=== PATIENT | female | born 1950 | race African-American/Black ===

== ENCOUNTER 2020-03-23 14:33 | Emergency (ER) | payer OTHER, SELFPAY ==
[2020-03-23 14:42] VITALS: BP 147/66; PULSE 71; RESP 14; TEMP 36.6; O2SAT 100
--- NOTE | 2020-03-23 15:03 | ED.URI ---
HPI - URI/Sore Throat General Chief Complaint: Upper Respiratory Infection Stated Complaint: cough and scratchy throat Time Seen by Provider: 03/23/20 15:03 Source: patient and RN notes reviewed History of Present Illness HPI Narrative: Patient is a 69-year-old female presents the urgent care with complaints of cough for 2 weeks. Patient states that it is typically yellow to clear productive and mostly only in the mornings. Patient reports of a sore throat that started last night. Patient reports it is been scratchy and irritated. Denies of any fever, nausea, vomiting. Denies of any shortness of breath. Denies of any medication [id number] for symptom relief. No other acute complaints. No acute distress noted. Patient read the plan of care. Related Data Home Medications Medication Instructions Recorded Confirmed linaclotide [Linzess] 145 mcg PO DAILY 03/23/20 03/23/20 Allergies Allergy/AdvReac Type Severity Reaction Status Date / Time esomeprazole Allergy Intermediate Rash Verified 03/23/20 14:49 Review of Systems Review of Systems: Narrative: CONSTITUTIONAL: Denies fever, chills, or sweats. EYES: Denies visual changes, redness, or discharge. ENT: Reports of sore throat CARDIOVASCULAR: Denies chest pain, palpitations, or edema. RESPIRATORY: Reports a mild cough without dyspnea GASTROINTESTINAL: Denies abdominal pain, nausea, vomiting, or diarrhea. GENITOURINARY: Denies dysuria or hematuria. SKIN: Denies rash or itching. MUSCULOSKELETAL: Denies back pain, joint pain, or myalgia. NEUROLOGIC: Denies headache, numbness, or weakness. All other systems reviewed are negative, except as documented in HPI. PMFSH Comments At the time of my signature, I reviewed and agree with the nursing past medical, surgical, social, and family history. There is no relevant family history pertinent to the patient complaint. Exam Narrative: Exam Narrative: GENERAL: This is a well-nourished, well-developed patient, in no apparent distress. HEAD: normocephalic, atraumatic. EYES: PERRL. Sclera clear/white. Vision is grossly intact. EARS: External ears normal, auditory canals clear and without drainage, TMs normal without perforation. Hearing grossly intact. NOSE: External nose normal with no obvious nasal discharge, nares without redness, no rhinorrhea. THROAT: Mucous membranes moist, mild erythema to the posterior oropharynx with mild postnasal drainage without exudate or ulceration. No tonsillar edema noted. NECK: Neck supple RESPIRATORY: Clear to auscultation. Breath sounds equal bilaterally. No wheezes, rales, or rhonchi. GASTROINTESTINAL: Abdomen soft, non-tender, nondistended. Bowel sounds are active. No hepato-splenomegaly, or palpable masses. No guarding. SKIN: warm, intact with no suspicious lesions or rash, good texture and turgor. NEURO: awake, alert, and oriented to person, place and time. There were no obvious focal neurologic abnormalities. EXTREMITIES: No clubbing, cyanosis, or edema. Course Vital Signs Vital signs: Vital Signs Temperature 98 F 03/23/20 14:42 Pulse Rate 71 03/23/20 14:42 Respiratory Rate 14 03/23/20 14:42 Blood Pressure 147/66 H 03/23/20 14:42 Pulse Oximetry 100 03/23/20 14:42 Temperature 98 F 03/23/20 14:42 Pulse Rate 71 03/23/20 14:42 Respiratory Rate 14 03/23/20 14:42 Blood Pressure 147/66 H 03/23/20 14:42 Pulse Oximetry 100 03/23/20 14:42 Reviewed?patient is informed that they may have pre-hypertension or hypertension based on a blood pressure reading in the department. I recommend the patient call the primary care provider listed on their discharge instructions or a physician of their choice this week to arrange follow-up for further evaluation of possible pre-hypertension or hypertension. MDM - URI/Sore Throat MDM Narrative Medical decision making narrative: Reviewed lab results with the patient. She is aware that strep swab was positive. Advised her to compl
== END 2020-03-23 15:11 | disposition home or self-care (01) ==
PROVIDERS: Emergency Provider Nurse Practitioner Family; PCP Internal Medicine
DX: J02.0 Streptococcal pharyngitis (principal); K58.9 Irritable bowel syndrome, unspecified; Z85.3 Personal history of malignant neoplasm of breast; R03.0 Elevated blood-pressure reading, without diagnosis of hypertension
CPT/HCPCS: 87880; 99213; G0463

== ENCOUNTER 2021-02-28 13:51 | Emergency (ER) | payer OTHER, SELFPAY ==
--- NOTE | ~2021-02-28 | XR_ITS ---
EXAMINATION: XR ankle LT min 3V DATE: 02/28/2021 14:30 INDICATION: Left ankle pain TECHNIQUE: Anteroposterior, lateral, mortise, and additional oblique view of the ankle were obtained. COMPARISON: None. FINDINGS: There is soft tissue swelling of ankle. Bone alignment is normal. No fracture is identified . A dorsal calcaneal enthesophyte is noted. There is mild osteoarthritis of the midfoot. IMPRESSION: 1. Soft tissue swelling without acute osseous abnormality. Reviewed, dictated and finalized at location B.
[2021-02-28 14:04] VITALS: BP 146/78; PULSE 94; RESP 20; TEMP 36.4; O2SAT 100
--- NOTE | 2021-02-28 14:46 | ED.LOWEXIN ---
HPI - Extremity Injury (Lower) General Chief Complaint: Extremity Injury, Lower Stated Complaint: Left ankle injury Time Seen by Provider: 02/28/21 14:38 Source: patient and RN notes reviewed Mode of arrival: ambulatory Limitations: no limitations History of Present Illness HPI Narrative: Patient presents today complaining of pain to her left ankle. States it gave out yesterday while she was walking. She has been ambulatory with increased pain since the injury. Denies falling when the foot gave out. Denies rolling the ankle. Reports some numbness to the anterior ankle since the injury. Currently rates her pain 4/10 and has been taking ibuprofen with relief. MD complaint: ankle injury Related Data Home Medications Medication Instructions Recorded Confirmed linaclotide [Linzess] 145 mcg PO DAILY 03/23/20 02/28/21 Allergies Allergy/AdvReac Type Severity Reaction Status Date / Time esomeprazole Allergy Intermediate Rash Verified 02/28/21 14:01 Review of Systems Review of Systems: Narrative: CONSTITUTIONAL: Denies body aches, fever, chills, or sweats. EYES: Denies visual changes, redness, or discharge. ENT: Denies rhinorrhea, congestion, sore throat, or otalgia. CARDIOVASCULAR: Denies chest pain, palpitations, or edema. RESPIRATORY: Denies cough or dyspnea. GASTROINTESTINAL: Denies abdominal pain, nausea, vomiting, or diarrhea. GENITOURINARY: Denies dysuria or hematuria. SKIN: Denies rash, itching, or wounds. MUSCULOSKELETAL: Denies back pain, or myalgia. + Left ankle injury NEUROLOGIC: Denies headache, tingling, or weakness.+ Numbness to left ankle PSYCH: Denies depression or anxiety. [facility]LY [facility] Past Medical History Medical History (Updated 02/28/21 @ 15:44 by No Thomas, [employer]NESS COORDINATOR, ) Breast cancer Irritable bowel syndrome Surgical History Surgical History (Updated 02/28/21 @ 15:44 by No Thomas, [facility], ) H/O: hysterectomy Comments At time of signature, I have reviewed and agree with nursing past medical, surgical, social and family history unless otherwise noted. Please see nursing chart for further information. There is no relevant family history pertinent to the presenting complaint Exam Narrative: Exam Narrative: GENERAL: Well-appearing, well-nourished, and in no acute distress. HEAD: Normocephalic, atraumatic. EYES: EOMI. No redness or drainage. Conjunctivae normal. ENT: Mucous membranes pink and moist. NECK: Normal AROM. CHEST: No respiratory distress. EXTREMITIES: Left ankle: Moderate swelling to the anterior and lateral ankle. Very mild tenderness to the lateral malleolus. Most tenderness to the soft tissue of the lateral ankle and the anterior ankle that is edematous and ecchymotic. No tenderness to the foot. Distal sensation intact and capillary refill normal. Pedal pulse normal. No tenderness to the medial malleolus or Achilles tendon. Full range of motion of the toes. Almost full range of motion of the ankle with mild increased pain. States more increased pain with weightbearing. SKIN: Warm, dry, no rash. Capillary refill normal. Normal skin turgor. NEURO: No focal deficits. Alert and oriented x3. Gait steady. PSYCH: Normal affect. No signs of depression or anxiety. Course Vital Signs Vital signs: Vital Signs Temperature 97.6 F 02/28/21 14:04 Pulse Rate 94 02/28/21 14:04 Respiratory Rate 20 02/28/21 14:04 Blood Pressure 146/78 H 02/28/21 14:04 Pulse Oximetry 100 02/28/21 14:04 Temperature 97.6 F 02/28/21 14:04 Pulse Rate 94 02/28/21 14:04 Respiratory Rate 20 02/28/21 14:04 Blood Pressure 146/78 H 02/28/21 14:04 Pulse Oximetry 100 02/28/21 14:04 Reviewed. Pt has been instructed to follow up with her PCP regarding her elevated blood pressure today. MDM - Extremity Injury (Lower) Differential Diagnosis Differential diagnosis: Likely ankle sprain and strain, ankle fracture and other (Contusion) Imaging Data Radiologist's i
== END 2021-02-28 14:50 | disposition home or self-care (01) ==
PROVIDERS: Emergency Provider Nurse Practitioner; PCP Internal Medicine
DX: S93.402A Sprain of unspecified ligament of left ankle, initial encounter (principal); X58.XXXA Exposure to other specified factors, initial encounter; Z85.3 Personal history of malignant neoplasm of breast
CPT/HCPCS: 73610; 99213; G0463

== ENCOUNTER 2021-07-25 12:39 | Emergency (ER) | payer OTHER, SELFPAY ==
[2021-07-25 12:46] VITALS: BP 144/66; PULSE 78; RESP 18; TEMP 36.6; O2SAT 99
--- NOTE | 2021-07-25 13:38 | ED.URI ---
HPI - URI/Sore Throat General Chief Complaint: Upper Respiratory Infection Stated Complaint: Coughing, sore Throat, congestion Time Seen by Provider: 07/25/21 13:39 Source: patient Mode of arrival: ambulatory Limitations: no limitations History of Present Illness HPI Narrative: Archana Wang is a 70 yo female with a PMH of GERD [facility] congestion that is been worsening over the last few days. She had 2 doses of Covid vaccine back in December, goes to the store but basically does not do a lot of other social things out in the community Related Data Allergies Allergy/AdvReac Type Severity Reaction Status Date / Time esomeprazole Allergy Intermediate Rash Verified 02/28/21 14:01 Review of Systems Review of Systems: CONSTITUTIONAL: Denies fever, chills, sweats. EYES: Denies visual changes, redness, discharge. ENT: Has rhinorrhea, has congestion, sore throat, otalgia. CARDIOVASCULAR: Denies chest pain, palpitations, edema. RESPIRATORY: Denies dyspnea, wheezing, has cough GASTROINTESTINAL: Denies abdominal pain, nausea, vomiting, diarrhea. GENITOURINARY: Denies dysuria, hematuria, abnormal discharge SKIN: Denies rash or itching. NEUROLOGIC: Denies numbness, or focal weakness. PSYCHIATRIC: Denies anxiety or depression. [facility] Past Medical History Medical History Breast cancer GERD (gastroesophageal reflux disease) Irritable bowel syndrome Surgical History Surgical History H/O: hysterectomy Social History Social History (Updated 07/25/21 @ 13:46 by Lashay Mcqueen CNP) Smoking status: Never smoker Alcohol intake: current Comments At time of signature, I agree with nursing past medical, surgical, social and family history. There is no relevant family history pertinent to the presenting complaint. Blood pressure elevated at this visit-patient has been coughing a lot and will follow up with primary care physician after testing is done Exam Narrative: GENERAL: This is a well-nourished, well-developed patient, in mild distress. HEAD: normocephalic, atraumatic. EYES: Sclera clear/white. Vision is grossly intact. EARS: External ears normal, auditory canals clear and without drainage, TMs normal without perforation. Hearing grossly intact. NOSE: External nose normal with nasal discharge, nares without redness, has rhinorrhea. THROAT: Mucous membranes moist, posterior pharynx mild erythema NECK: Neck supple, non-tender CARDIOVASCULAR: Regular rate and rhythm without murmurs, gallops, or rubs. RESPIRATORY: Coarse to auscultation. Breath sounds equal bilaterally. No wheezes, rales, or rhonchi. GASTROINTESTINAL: Abdomen soft, non-tender, SKIN: warm, intact with no suspicious lesions or rash, good texture and turgor. NEURO: awake, alert, and oriented to person, place and time. There were no obvious focal neurologic abnormalities. Steady gait EXTREMITIES: Normal range of motion. BACK: Nontender without deformity Course Course Emergency Course: Patient comes to evaluate to [facility] for evaluation of cough and congestion Strep is negative and has been sent for culture, Covid PCR also sent Patient quarantine until results are obtained Treated with prednisone, Tessalon, Zithromax Vital Signs Vital signs: Vital Signs Temperature 97.9 F 07/25/21 12:46 Pulse Rate 78 07/25/21 12:46 Respiratory Rate 18 07/25/21 12:46 Blood Pressure 144/66 H 07/25/21 12:46 Pulse Oximetry 99 07/25/21 12:46 Temperature 97.9 F 07/25/21 12:46 Pulse Rate 78 07/25/21 12:46 Respiratory Rate 18 07/25/21 12:46 Blood Pressure 144/66 H 07/25/21 12:46 Pulse Oximetry 99 07/25/21 12:46 MDM - URI/Sore Throat Differential Diagnosis Differential diagnosis: Likely upper respiratory infection, viral infection, bronchitis, pharyngitis and other (Covid) Lab Data Labs: Lab Result
[2021-07-26 18:57] LABS: SARS-CoV-2 RNA PCR Negative
== END 2021-07-25 13:59 | disposition home or self-care (01) ==
PROVIDERS: Emergency Provider Nurse Practitioner; PCP Internal Medicine
DX: J40 Bronchitis, not specified as acute or chronic (principal); Z20.822 Contact with and (suspected) exposure to COVID-19; K21.9 Gastro-esophageal reflux disease without esophagitis; Z85.3 Personal history of malignant neoplasm of breast
CPT/HCPCS: 87081; 87880; 99213; C9803; G0463; U0003; U0005

== ENCOUNTER 2021-12-03 16:04 | Emergency (ER) | payer OTHER, SELFPAY ==
--- NOTE | ~2021-12-03 | XR_ITS ---
EXAMINATION: XR chest 2V DATE: 12/03/2021 16:30 INDICATION: Cough. Wheezing. TECHNIQUE: Frontal and lateral views of the chest were obtained. COMPARISON: Chest 2 views 11/12/2018 FINDINGS: There is mild atelectasis at left lung base. No pleural effusion or pneumothorax. The heart size is normal. There are prominent paracardial fat pads. IMPRESSION: 1. Mild atelectasis at left lung base. Reviewed, dictated and finalized at location A. 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
[2021-12-03 16:09] VITALS: BP 168/77; PULSE 82; RESP 16; TEMP 36.7; O2SAT 100
--- NOTE | 2021-12-03 16:19 | ED.URI ---
HPI - URI/Sore Throat General Chief Complaint: Upper Respiratory Infection Stated Complaint: meds not working Time Seen by Provider: 12/03/21 16:19 Source: patient and RN notes reviewed History of Present Illness HPI Narrative: Patient is 70-year-old female who presents the urgent care with complaints of persistent cough. Patient states that approximately 1 month ago she followed up with her PCP and was placed on a Z-Harpreet and Tessalon Perles without much improvement. Patient states that she has been negative for COVID. States that she is having increased wheezing. Denies any fever, chills, nausea, vomiting. No other acute complaints. No acute distress noted. Patient aware of the plan of care. Some parts of this dictation were generated by voice recognition software and may contain typographical and/or grammatical inaccuracies. Related Data Allergies Allergy/AdvReac Type Severity Reaction Status Date / Time esomeprazole Allergy Intermediate Rash Verified 02/28/21 14:01 Review of Systems Review of Systems: CONSTITUTIONAL: Denies fever, chills, or sweats. EYES: Denies visual changes, redness, or discharge. ENT: Denies rhinorrhea, congestion, sore throat, or otalgia. CARDIOVASCULAR: Denies chest pain, palpitations, or edema. RESPIRATORY: Reports a persistent cough with intermittent wheezing GASTROINTESTINAL: Denies abdominal pain, nausea, vomiting, or diarrhea. GENITOURINARY: Denies dysuria or hematuria. SKIN: Denies rash or itching. MUSCULOSKELETAL: Denies back pain, joint pain, or myalgia. NEUROLOGIC: Denies headache, numbness, or weakness. All other systems reviewed are negative, except as documented in HPI. PMFSH Past Medical History Medical History Breast cancer GERD (gastroesophageal reflux disease) Irritable bowel syndrome Surgical History Surgical History H/O: hysterectomy Social History Social History (Updated 07/25/21 @ 13:46 by Lashay Mcqueen CNP) Smoking status: Never smoker Alcohol intake: current Comments At the time of my signature, I reviewed and agree with the nursing past medical, surgical, social, and family history. There is no relevant family history pertinent to the patient complaint. Exam Narrative: GENERAL: This is a well-nourished, well-developed patient, in no apparent distress. HEAD: normocephalic, atraumatic. EYES: PERRL. Sclera clear/white. Vision is grossly intact. EARS: External ears normal, auditory canals clear and without drainage, TMs normal without perforation. Hearing grossly intact. NOSE: External nose normal with no obvious nasal discharge, nares without redness, no rhinorrhea. THROAT: Mucous membranes moist. Moderate postnasal drainage NECK: Neck supple CARDIOVASCULAR: Regular rate and rhythm without murmurs, gallops, or rubs. RESPIRATORY: Expiratory wheezes to left upper lobe otherwise clear SKIN: warm, intact with no suspicious lesions or rash, good texture and turgor. NEURO: awake, alert, and oriented to person, place and time. There were no obvious focal neurologic abnormalities. EXTREMITIES: No clubbing, cyanosis, or edema. Course Course Level of Care: Express Care Visit Vital Signs Vital signs: Vital Signs Temperature 98.1 F 12/03/21 16:09 Pulse Rate 82 12/03/21 16:09 Respiratory Rate 16 12/03/21 16:09 Blood Pressure 168/77 H 12/03/21 16:09 Pulse Oximetry 100 12/03/21 16:09 Temperature 98.1 F 12/03/21 16:09 Pulse Rate 82 12/03/21 16:09 Respiratory Rate 16 12/03/21 16:09 Blood Pressure 168/77 H 12/03/21 16:09 Pulse Oximetry 100 12/03/21 16:09 Reviewed-patient is informed that they may have pre-hypertension or hypertension based on a blood pressure reading in the department. I recommend the patient call the primary care provider listed on their discharge instructions or a physician of their choice this week to arrange
== END 2021-12-03 16:53 | disposition home or self-care (01) ==
PROVIDERS: Emergency Provider Nurse Practitioner Family; PCP Internal Medicine
DX: J40 Bronchitis, not specified as acute or chronic (principal); K21.9 Gastro-esophageal reflux disease without esophagitis; Z85.3 Personal history of malignant neoplasm of breast
CPT/HCPCS: 71046; 99213; G0463

== ENCOUNTER 2021-12-22 14:19 | Emergency (ER) | payer OTHER, SELFPAY ==
[2021-12-22 14:30] VITALS: BP 133/60; PULSE 87; RESP 16; TEMP 37.1; O2SAT 100
--- NOTE | 2021-12-22 15:21 | ED.GENADULT ---
HPI - General Adult General Chief complaint: Upper Respiratory Infection Stated complaint: nose bleed Source: patient Mode of arrival: ambulatory Limitations: no limitations History of Present Illness HPI narrative: Patient presents for evaluation of recent nosebleed. She states yesterday morning she developed left sided epistaxis after blowing her nose. She had a similar event today also after blowing her nose. Both episodes lasted about 30 mins but she was able to get bleeding under control. She is not on blood thinners. She states she has had a productive cough of yellow sputum for about a month. She saw her primary doctor and received a prescription for Tessalon. This did not particularly help. She states she took two COVID tests both of which were negative. She states she was seen here and had CXR and was told CXR was consistent with atelectasis. She has some mild exertional dyspnea. No fever, chills, nausea, vomiting. She has received vaccination for Covid. No additional complaints or concerns. Related Data Home Medications Medication Instructions Recorded Confirmed No Home Medications 12/22/21 12/22/21 Allergies Allergy/AdvReac Type Severity Reaction Status Date / Time esomeprazole Allergy Intermediate Rash Verified 12/22/21 14:40 Review of Systems Review of Systems: CONSTITUTIONAL: Denies fever, chills, or sweats. EYES: Denies visual changes, redness, or discharge. ENT: Reports recent left sided nosebleed, now resolved. Denies rhinorrhea, congestion, sore throat, or otalgia. CARDIOVASCULAR: Denies chest pain, palpitations, or edema. RESPIRATORY: Reports cough. Denies dyspnea. GASTROINTESTINAL: Denies abdominal pain, nausea, vomiting, or diarrhea. GENITOURINARY: Denies dysuria or hematuria. SKIN: Denies rash or itching. MUSCULOSKELETAL: Denies back pain, joint pain, or myalgia. NEUROLOGIC: Denies headache, numbness, dizziness, or weakness. PSYCHIATRIC: Denies anxiety or depression. [facility] Past Medical History Medical History Breast cancer GERD (gastroesophageal reflux disease) Irritable bowel syndrome Surgical History Surgical History H/O: hysterectomy Family History Family History Mother Family history non-contributory Social History Social History Smoking status: Never smoker Alcohol intake: current Substance use: never Living arrangements: with family Gender identity (if verbalized by the patient): Female Sexual Orientation (if Verbalized by the Patient): Straight or Heterosexual Spiritual care concerns: No Exam Narrative: GENERAL: Well-appearing, well-nourished, and in no acute distress. HEAD: Normocephalic, atraumatic. EYES: PERRLA and EOMI. ENT: There is some irritation noted to nasal mucosa in bilateral nares. Mucous membranes moist. Oropharynx without tonsillar hypertrophy exudate or other lesions. Bilateral TMs pearly ndiaye nonbulging NECK: Supple. No adenopathy or masses. No carotid bruits or JVD CHEST: Clear to auscultation. No respiratory distress. No wheezes rales or rhonchi HEART: Regular rate and rhythm. No murmur heard. Normal peripheral pulses. ABDOMEN: Soft, nontender, nondistended, normal active bowel sounds. EXTREMITIES: Normal range of motion. No edema. SKIN: Warm, dry, no rash. NEURO: No focal deficits. Alert and oriented x3. PSYCH: Normal mood and affect. Course Course Emergency Course: This is a 71-year-old female who presented for evaluation after having a nosebleed yesterday and the day before after blowing her nose. Blood pressure stable. No active bleeding on my evaluation. This may be some nasal mucosal irritation from the cold weather and dry heat. She is sleep with a humidifier and apply some petrol
== END 2021-12-22 15:20 | disposition home or self-care (01) ==
PROVIDERS: Emergency Provider Nurse Practitioner; PCP Internal Medicine
DX: R04.0 Epistaxis (principal); K21.9 Gastro-esophageal reflux disease without esophagitis; Z85.3 Personal history of malignant neoplasm of breast
CPT/HCPCS: 99211; G0463

== ENCOUNTER 2022-10-11 18:52 | Emergency (ER) | payer OTHER, SELFPAY ==
[2022-10-11 18:59] VITALS: BP 165/57; PULSE 109; RESP 16; TEMP 37.3; O2SAT 98
--- NOTE | 2022-10-11 21:17 | ED.URI ---
HPI - URI/Sore Throat General Chief Complaint: Upper Respiratory Infection Stated Complaint: cough congestion fever Time Seen by Provider: 10/11/22 21:00 Source: patient, RN notes reviewed and old records reviewed Mode of arrival: ambulatory Limitations: no limitations History of Present Illness HPI Narrative: 71-year-old female who presents to [facility] with complaints of cough, chest congestions, is unable to sleep due to cough, fevers up to 102F today. Patient reports that she took home COVID today which was negative. Patient is undergoing Chemotherapy for breast cancer and has last treatment scheduled for upcoming Thursday. Patient has been taking Tylenol for her fevers. MD elicited complaint: cough and sore throat Onset (ago): day(s) (2) Exacerbating factors: other (cough) Treatments prior to arrival: acetaminophen Related Data Home Medications Medication Instructions Recorded Confirmed Vitamin D3 PO DAILY 09/23/22 gabapentin 100 mg capsule 100 mg PO BID 10/11/22 10/11/22 Allergies Allergy/AdvReac Type Severity Reaction Status Date / Time esomeprazole Allergy Intermediate Rash Verified 10/11/22 19:59 Review of Systems Review of Systems: CONSTITUTIONAL: Reports malaise, chills, sweats, or fever. EYES: Denies visual changes, redness, or discharge. ENT: Reports rhinorrhea, congestion, sinus pain, otalgia and sore throat. CARDIOVASCULAR: Denies chest pain, palpitations, or edema. RESPIRATORY: Reports cough.? Reports some dyspnea with cough GASTROINTESTINAL: Denies abdominal pain, nausea, vomiting, diarrhea SKIN: Denies rash or itching. MUSCULOSKELETAL: Reports myalgia. NEUROLOGIC: Denies headache. All systems reviewed & are unremarkable except as noted in HPI and below PMFSH Past Medical History Medical History (Updated 10/12/22 @ 00:00 by Background Daemon) Breast cancer GERD (gastroesophageal reflux disease) Irritable bowel syndrome Surgical History Surgical History H/O: hysterectomy Family History Family History Mother Family history non-contributory Social History Social History Smoking status: Never smoker Alcohol intake: current Substance use: never Gender identity (if verbalized by the patient): Female Sexual Orientation (if Verbalized by the Patient): Straight or Heterosexual Spiritual care concerns: No Comments At time of signature, agree with nursing past medical, surgical, social and family history. There is no relevant family history pertinent to the presenting complaint Exam Narrative: GENERAL: Well-appearing, well-nourished, and in no acute distress. HEAD: Normocephalic EYES: PERRLA, conjunctivae clear ENT: Nares clear, turbinates edematous and erythematous, clear discharge. Mucous membranes moist. TM pearly ndiaye with dull light reflex bilaterally; no tragal tenderness. Oropharynx erythematous without lesions. Tonsils not enlarged and without exudate, no drooling, no hoarseness, no trismus, uvula midline. NECK: Supple. No lymphadenopathy CHEST: Clear to auscultation, breath sounds equal. No wheezing, rhonchi, rales, or stridor. No respiratory distress, speaks in full sentences.harsh cough SAO2 98% on room air HEART: Regular rate and rhythm. No murmur heard. SKIN: Warm, dry, no rash. NEURO: Alert and oriented x3. PSYCH: Normal mood and affect Course Course Emergency Course: Patient is aware of diagnosis, understands and agrees to treatment plan.? Anticipatory guidance given.? Patient agrees to follow-up as directed and is aware of reasons to seek care at the emergency department. Portions of this record may have been created with voice recognition software Level of Care: Express Care Visit Vital Signs Vital signs: Vital Signs Temperature 37.3 C
== END 2022-10-11 21:34 | disposition home or self-care (01) ==
PROVIDERS: Emergency Provider Registered Nurse; PCP Internal Medicine
DX: J10.1 Influenza due to other identified influenza virus with other respiratory manifestations (principal); R05.9 Cough, unspecified; K21.9 Gastro-esophageal reflux disease without esophagitis; Z85.3 Personal history of malignant neoplasm of breast
CPT/HCPCS: 87804; 99213; G0463

== ENCOUNTER 2022-11-13 09:21 | Outpatient (CLI) | payer OTHER, SELFPAY ==
[2022-11-13 20:09] LABS: Basophils Absolute Auto 0.1 K/mm3 (0.0-0.1); Basophils Percent Auto 0.9 % (0.2-1.2); Eosinophils Absolute Auto 0.1 K/mm3 (0-0.3); Eosinophils Percent Auto 1.3 % (0-4.4); Hematocrit 38.4 % (37.0-47.0); Hemoglobin 11.6 g/dL (12.0-15.0); Immature Granulocyte Absolute 0.05 K/mm3 (0.00-0.031); Immature Granulocyte Percent A 0.4 % (0-0.5); Lymphocytes Absolute Auto 2.32 K/mm3 (0.9-3.2); Lymphocytes Percent Auto 20.7 % (18.3-44.2); Mean Corpuscular HGB Conc 30.2 g/dl (32-36); Mean Platelet Volume 9.3 fl (7.4-10.4); Monocytes Absolute Auto 1.1 K/mm3 (0.1-0.6); Neutrophils Absolute Auto 7.5 K/mm3 (1.3-6.7); Neutrophils Percent Auto 66.7 % (45.5-73.1); Platelet Count Result 467 k/mm3 (150-375); Red Cell Distribution Width 18.5 % (11.5-14.5); White Blood Count 11.2 K/mm3 (4.5-10.0)
[2022-11-13 20:13] LABS: Alanine Aminotransferase 18 U/L (6-35); Albumin Level 4.5 g/dL (3.5-5.1); Alkaline Phosphatase 77 U/L (38-126); Anion Gap 7 mmol/L (8-16); Aspartate Amino Transferase 68 U/L (14-36); Bilirubin,Total 0.6 mg/dL (0.2-1.3); Blood Urea Nitrogen 17 mg/dL (7-17); Calcium 10.3 mg/dL (8.4-10.2); Carbon Dioxide 28 mmol/L (22-30); Chloride 103 mmol/L (98-107); Cholesterol 255 mg/dL (0-200); Estimated Glomerular Filt Rate > 60; Glucose 88 mg/dL (65-110); HDL Direct 50 mg/dL; Potassium 4.9 mmol/L (3.4-5.0); Sodium 138 mmol/L (137-145); Triglycerides 221 mg/dL (<150)
[2022-11-13 20:23] LABS: LDL Cholesterol Direct 131 mg/dL
== END 2022-11-13 09:22 | disposition home or self-care (01) ==
PROVIDERS: PCP Family Medicine; Visit Provider Family Medicine
DX: C50.919 Malignant neoplasm of unspecified site of unspecified female breast (principal); M54.40 Lumbago with sciatica, unspecified side; G62.9 Polyneuropathy, unspecified
CPT/HCPCS: 36415; 80053; 80061; 85025

== ENCOUNTER 2022-11-20 13:45 | Outpatient (CLI) | payer OTHER, SELFPAY ==
[2022-11-20 20:39] LABS: Add Urine Microscopic? YES; Appearance Urine Clear (Clear); Bilirubin Urine Negative (Negative); Blood Urine Negative (Negative); Color Urine Yellow (Yellow); Glucose Urine UA Negative (Negative); Ketones Urine Negative (Negative); Leukocyte Esterase Ur 2+ LEU/UL (NEGATIVE); Nitrate Urine Negative (Negative); Protein Urine Negative (Negative); Specific Grav Ur 1.025 (1.001-1.035); Urobilinogen Urine 0.2 mg/dL (<2.0); pH Urine 5.5 (5.0-9.0)
[2022-11-20 20:45] LABS: Bacteria Urine Trace /hpf; Mucus Urine Rare /lpf; Squamous Epithelial Cell Urine Many /hpf (Few); Transitional Epi Cells Urine Rare /hpf (None Seen); WBC Urine 16-20 /hpf (0-3)
== END 2022-11-20 13:46 | disposition home or self-care (01) ==
LOC: ANHBWCLAB 13:46
PROVIDERS: PCP Family Medicine; Visit Provider Family Medicine
DX: R74.01 Elevation of levels of liver transaminase levels (principal); E78.5 Hyperlipidemia, unspecified; D72.829 Elevated white blood cell count, unspecified
CPT/HCPCS: 81001

== ENCOUNTER 2022-12-29 12:49 | Outpatient (CLI) | payer OTHER, SELFPAY ==
--- NOTE | ~2022-12-29 | XR_ITS ---
EXAMINATION: XR hip BI 2V w AP pelvis DATE: 12/29/2022 13:06 INDICATION: Low back pain, history of breast cancer TECHNIQUE: AP view of the pelvis and two views of each hip were obtained. COMPARISON: None. FINDINGS: Bone alignment is normal. There is no fracture. There is mild osteoarthritis of the hips. T he soft tissues are unremarkable. IMPRESSION: 1. No acute osseous abnormality. Reviewed, dictated and finalized at location B. 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
--- NOTE | ~2022-12-29 | XR_ITS ---
EXAMINATION: XR lumbar spine 2-3V DATE: 12/29/2022 13:06 INDICATION: Low back pain TECHNIQUE: Anteroposterior and lateral views of the lumbar spine, and cone-down lateral view of the l umbosacral junction were obtained. COMPARISON: None. FINDINGS: Bone alignment is normal. There is no fracture. There is mild loss of intervertebral disc s pace height at L2-3 and L5-S1. Small degenerative osteophytes project from the anterior endplates of multiple vertebral bodies. There is moderate multilevel facet joint osteoarthritis. Small degenerativ e osteophytes project from the anterior endplates of multiple vertebral bodies. IMPRESSION: 1. Mild lumbar spondylosis without acute findings. Reviewed, dictated and finalized at location B. MENT MANAGEMENT CONSULTANT
== END 2022-12-29 12:50 | disposition home or self-care (01) ==
LOC: ANHBWCIMG 12:50
PROVIDERS: PCP Family Medicine; Visit Provider Family Medicine
DX: M47.816 Spondylosis without myelopathy or radiculopathy, lumbar region (principal); M25.559 Pain in unspecified hip
CPT/HCPCS: 72100; 73521

== ENCOUNTER 2024-05-28 20:21 | Emergency (ER) | payer OTHER, SELFPAY ==
--- NOTE | ~2024-05-28 | XR_ITS ---
AP and lateral views of the right tibia/fibula Clinical History: Pain Findings: No acute fracture or dislocation is seen. Osseous alignment is anatomic. Joint spaces are p reserved without significant erosive or degenerative change. Soft tissues are unremarkable. Impression: Unremarkable right tib-fib radiographs. Reviewed, dictated and finalized at [facility]. Impression: Unremarkable right tib-fib radiographs.
[2024-05-28 20:23] VITALS: BP 148/66; PULSE 74; RESP 20; TEMP 36.2; O2SAT 100
--- NOTE | 2024-05-28 21:35 | ED.EXTPRO ---
HPI - Extremity Problem General Chief complaint: Extremity Problem,Nontraumatic Stated complaint: leg pain and edema Time Seen by Provider: 05/28/24 21:27 History of Present Illness HPI Narrative: 73-year-old female with history of hyperlipidemia, neuropathy, breast cancer in remission since 2022 presents to the emergency department for right calf pain and swelling for 2 days. Patient's daughter is at bedside. She denies injury or trauma. States her exam is more swollen than normal. She describes the pain as a tightness. Denies recent immobilization, long travel, recent surgeries or hospitalizations, history of VTE. She denies chest pain or shortness of breath, palpitations or dizziness. Related Data Home Medications Medication Instructions Recorded Confirmed Vitamin D3 PO DAILY 09/23/22 04/05/24 Allergies Allergy/AdvReac Type Severity Reaction Status Date / Time esomeprazole Allergy Intermediate Rash Verified 05/28/24 20:25 Review of Systems Review of Systems: All systems reviewed & are unremarkable except as noted in HPI and below PMFSH Past Medical History Medical History Breast cancer GERD (gastroesophageal reflux disease) Irritable bowel syndrome Surgical History Surgical History H/O: hysterectomy Family History Family History Mother Family history non-contributory Social History Social History Smoking status: Never smoker Alcohol intake: current Substance use: never Lack of Transportation: No Lack of Food: Sometimes True Current Housing: I Have Housing Concerned About Future Housing: No Difficulty Paying Gas/Electric Bills: No Difficulty Paying for Meds: No Currently Unemployed: No Education: Associate Degree Difficulty w/ Childcare or Family Care: No Living arrangements: with family Gender identity (if verbalized by the patient): Female Sexual Orientation (if Verbalized by the Patient): Straight or Heterosexual Spiritual care concerns: No Exam Narrative: GENERAL: Well-appearing, well-nourished, and in no acute distress. HEAD: Normocephalic, atraumatic. EYES: PERRLA and EOMI. ENT: Nares clear, no rhinorrhea or epistaxis. Mucous membranes moist. NECK: Supple. CHEST: Clear to auscultation. No respiratory distress. HEART: Regular rate and rhythm. No murmur heard. Normal peripheral pulses. EXTREMITIES: Tenderness to the right calf with positive Homans side. No edema. No warmth or erythema. DP pulse 2 +. Sensation intact. Full range of motion of lower extremity. No tenderness remainder lower extremity. SKIN: Warm, dry, no rash. NEURO: No focal deficits. Alert and oriented x3 Course Vital Signs Vital signs: Vital Signs Temperature 97.2 F L 05/28/24 20:23 Pulse Rate 74 05/28/24 20:23 Respiratory Rate 20 05/28/24 20:23 Blood Pressure 148/66 H 05/28/24 20:23 Pulse Oximetry 100 05/28/24 20:23 Oxygen Delivery Room Air 05/28/24 20:23 Temperature 97.2 F L 05/28/24 20:23 Pulse Rate 74 05/28/24 20:23 Respiratory Rate 20 05/28/24 20:23 Blood Pressure 148/66 H 05/28/24 20:23 Pulse Oximetry 100 05/28/24 20:23 Oxygen Delivery Room Air 05/28/24 20:23 MDM - Extremity (Nontraumatic) MDM Narrative Medical decision making narrative: 73-year-old female presents emergency department for right calf pain and swelling for 2 days. His vital stable. Exam is significant for the above. CBC without leukocytosis or anemia. Chemistries are unremarkable other than calcium of 10.5. X-ray of the tib-fib shows no acute abnormalities. D-dimer is within normal limits. Wells score is moderate risk (one point for tenderness along deep venous system). Worker discussed with patient and family
[2024-05-28] MEDS: ACETAMINOPHEN 325 MG TABLET 650 MG PO (21:51)
[2024-05-28 22:08] LABS: Basophils Absolute Auto 0.1 K/mm3 (0.0-0.1); Basophils Percent Auto 0.9 % (0.2-1.2); Eosinophils Absolute Auto 0.1 K/mm3 (0-0.3); Eosinophils Percent Auto 1.6 % (0-4.4); Immature Granulocyte Absolute 0.03 K/mm3 (0.00-0.031); Immature Granulocyte Percent A 0.4 % (0-0.5); Lymphocytes Absolute Auto 3.49 K/mm3 (0.9-3.2); Lymphocytes Percent Auto 42.5 % (18.3-44.2); Mean Corpuscular HGB Conc 32.6 g/dl (32-36); Mean Corpuscular Hemoglobin 28.7 pg (26-34); Mean Corpuscular Volume 88.3 fl (80-100); Mean Platelet Volume 9.2 fl (7.4-10.4); Monocytes Absolute Auto 0.8 K/mm3 (0.1-0.6); Monocytes Percent Auto 9.1 % (2.6-8.5); Neutrophils Absolute Auto 3.7 K/mm3 (1.3-6.7); Neutrophils Percent Auto 45.5 % (45.5-73.1); Platelet Count Result 305 k/mm3 (150-375); Red Blood Count 4.87 M/mm3 (4.2-5.4); Red Cell Distribution Width 14.9 % (11.5-14.5); White Blood Count 8.2 K/mm3 (4.5-10.0)
[2024-05-28 22:17] LABS: Anion Gap 9 mmol/L (4-12); Blood Urea Nitrogen 23 mg/dL (7-17); Calcium 10.5 mg/dL (8.4-10.2); Carbon Dioxide 27 mmol/L (22-30); Chloride 102 mmol/L (98-107); Estimated CRCL calculation 59 ml/min; Estimated Glomerular Filt Rate > 60; Glucose 96 mg/dL (65-110); Potassium 4.4 mmol/L (3.4-5.0); Sodium 138 mmol/L (137-145)
[2024-05-28 22:19] LABS: INR 0.9; Partial Thromboplastin Time 25.9 Seconds (22.3-36.8); Prothrombin Time 12.7 Seconds (11.1-14.7)
[2024-05-28 23:18] LABS: D Dimer 0.34 ug/mL (<0.48)
== END 2024-05-28 23:42 | disposition home or self-care (01) ==
PROVIDERS: Emergency Provider Physician Assistant; PCP Internal Medicine
DX: M79.661 Pain in right lower leg (principal); E78.5 Hyperlipidemia, unspecified; Z85.3 Personal history of malignant neoplasm of breast
CPT/HCPCS: 36415; 73590; 80048; 85025; 85380; 85610; 85730; 99283; A9270

== ENCOUNTER 2024-05-29 07:15 | Outpatient (CLI) | payer OTHER, SELFPAY ==
--- NOTE | ~2024-05-29 | US_ITS ---
EXAMINATION: US venous doppler LE RT DATE: 05/29/2024 07:40 INDICATION: Right lower limb pain and swelling TECHNIQUE: Grayscale ultrasound images without and with compression and Doppler ultrasound images of the right lower extremity veins were obtained. COMPARISON: None. FINDINGS: The visualized portions of right common femoral vein, profunda (deep) femoral vein, femoral vein, pop liteal vein, peroneal trunk, posterior tibial veins, peroneal veins, gastrocnemius vein and greater s aphenous vein outflow are patent. IMPRESSION: 1. No deep venous thrombosis in the right lower limb. Reviewed, dictated and finalized at location A.
== END 2024-05-29 07:16 | disposition home or self-care (01) ==
LOC: ANHIMG 07:19
PROVIDERS: PCP Nurse Practitioner Adult Health; Visit Provider Physician Assistant
DX: M79.89 Other specified soft tissue disorders (principal)
CPT/HCPCS: 93971

== ENCOUNTER 2024-05-30 16:03 | Outpatient (CLI) | payer OTHER, SELFPAY ==
--- NOTE | ~2024-05-30 | XR_ITS ---
EXAM: XR knee RT min 4V DATE: 05/30/2024 16:33 HISTORY: RT KNEE PAIN X 4 DAYS NKI OBESITY NOTED . COMPARISON: X-ray tib-fib 05/28/2024. FINDINGS: Decreased mineralization. No fracture or dislocation. No lytic or blastic lesion. Moderate medial joint space narrowing. Mild tricompartmental osteophytosis. Quadriceps enthesopathy. No erosi on or periosteal change. Soft tissues within normal limits. IMPRESSION: Tricompartmental right knee osteoarthritis, moderate in the medial compartment. Reviewed, dictated and finalized at location K.
== END 2024-05-30 16:04 | disposition home or self-care (01) ==
PROVIDERS: PCP Nurse Practitioner Adult Health; Visit Provider Internal Medicine
DX: M17.11 Unilateral primary osteoarthritis, right knee (principal)
CPT/HCPCS: 73564

== ENCOUNTER 2024-06-06 10:51 | Outpatient (CLI) | payer OTHER, SELFPAY ==
--- NOTE | ~2024-06-06 | MR_ITS ---
EXAMINATION: MR knee RT wo con DATE: 06/06/2024 13:03 INDICATION: RT KNEE MENISCUS TEAR TECHNIQUE: Magnetic resonance imaging (MRI) of the right knee was performed without intravenous contr ast. Sequences included axial PD-weighted FS FSE, coronal PD-weighted FSE and PD-weighted FS FSE, sag ittal PD-weighted FSE, and sagittal T2-weighted FS FSE. COMPARISON: 05/30/2024 FINDINGS: Medial compartment: Vertically oriented tear at the meniscal root ligament. Mild extrusion. Moderate diffuse cartilage th inning. Mild osteophytosis. Lateral compartment: Meniscus intact. Moderate diffuse cartilage thinning. Mild osteophytosis. Patellofemoral compartment: Moderate diffuse cartilage thinning. Retinacula intact. Quadriceps enthesopathy. Ligaments and tendons: The ACL, PCL, MCL, and LCL are intact. Remaining flexor and extensor tendons are intact. Fluid: Small volume joint fluid. Small Dickson's cyst Osseous/other: No suspicious focal or diffuse marrow signal. IMPRESSION: Vertical tear of the meniscal root ligament, medial meniscus. Moderate tricompartmental osteoarthritis. Quadriceps enthesopathy. Small right knee joint effusion with a small Dickson's cyst. Reviewed, dictated and finalized at location K.
== END 2024-06-06 10:52 ==
PROVIDERS: PCP Nurse Practitioner Adult Health; Visit Provider Internal Medicine
DX: S83.241A Other tear of medial meniscus, current injury, right knee, initial encounter (principal); M17.11 Unilateral primary osteoarthritis, right knee; M25.461 Effusion, right knee; M71.21 Synovial cyst of popliteal space [Baker], right knee; X58.XXXA Exposure to other specified factors, initial encounter
CPT/HCPCS: 73721

== ENCOUNTER 2024-06-29 00:32 | Day surgery (SDC) | payer OTHER, SELFPAY ==
--- NOTE | 2024-06-23 08:06 | PM.IMHP ---
H&P: HPI History of Present Illness Date/Time: 06/23/24 08:06 Chief Complaint: Patient has catching locking right knee. She mechanical-type symptoms. She has a meniscal tear has failed conservative treatment. She would like to consider arthroscopic intervention. Review of Systems Musculoskeletal: Musculoskeletal: Reports arthralgias, Reports joint swelling and Reports stiffness PMF Past Medical History Medical History Breast cancer GERD (gastroesophageal reflux disease) Irritable bowel syndrome Surgical History Surgical History H/O: hysterectomy Family History Family History (Updated 06/09/24 @ 10:21 by NICOLE Schwartz) Mother Family history non-contributory Dementia Father No problems noted. Sibling No problems noted. Social History Social History (Updated 06/09/24 @ 10:22 by NICOLE Schwartz) Smoking status: Never smoker Second hand tobacco smoke exposure: Yes Alcohol intake: current Substance use: never Substance use type: does not use Do You Feel Safe in your Home?: Yes Lack of Transportation: No Lack of Food: Sometimes True Current Housing: I Have Housing Concerned About Future Housing: No Difficulty Paying Gas/Electric Bills: No Difficulty Paying for Meds: No Currently Unemployed: No Education: Associate Degree Difficulty w/ Childcare or Family Care: No Living arrangements: with family Additional living arrangements comments: grandkids Occupation/Education: occupation 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 Gender identity (if verbalized by the patient): Female Sexual Orientation (if Verbalized by the Patient): Straight or Heterosexual Spiritual care concerns: No Meds Home Medications and Allergies Home Medications Medication Instructions Recorded Confirmed Type Vitamin D3 PO DAILY 09/23/22 06/09/24 History pregabalin 150 mg capsule (Lyrica) 150 mg PO BID #60 caps 04/05/24 06/09/24 Rx acetaminophen 500 mg capsule 500 mg PO Q6H PRN pain #30 caps 05/28/24 06/09/24 Rx cyclobenzaprine 5 mg tablet 5 mg PO TID PRN muscle spasm #14 05/28/24 06/09/24 Rx tabs prednisone 10 mg tablet 10 mg PO BID #20 tabs 06/09/24 06/09/24 Rx Allergies Allergy/AdvReac Type Severity Reaction Status Date / Time esomeprazole Allergy Intermediate Rash Verified 06/09/24 10:18 Exam Narrative: Right there on exam she has a catching and locking of her right knee. She has mechanical symptoms. She is tender along the joint line has a positive Ploly's. She walks with an antalgic gait. Neurologically she is grossly intact. Eyes: General: appearance normal, both eyes and all related structures Neck: Neck: supple Resp: Effort & Inspection: normal respiratory effort Cardio: Rate: regular rate Rhythm: regular rhythm Radiology Reports: Comments: Patient: Archana Johnson EXAMINATION: MR knee RT wo con DATE: 06/06/2024 13:03 INDICATION: RT KNEE MENISCUS TEAR TECHNIQUE: Magnetic resonance imaging (MRI) of the right knee was performed without intravenous contrast. Sequences included axial PD-weighted FS FSE, coronal PD-weighted FSE and PD-weighted FS FSE, sagittal PD-weighted FSE, and sagittal T2-weighted FS FSE. COMPARISON: 05/30/2024 FINDINGS: Medial compartment: Vertically oriented tear at the meniscal root ligament. Mild extrusion. Moderate diffuse cartilage thinning. Mild osteophytosis. Lateral compartment: Meniscus intact. Moderate diffuse cartilage thinning. Mild osteophytosis. Patellofemoral compartment: Moderate diffuse cartilage thinning. Retinacula intact. Quadriceps enthesopathy. Ligaments and tendons: The ACL, PCL, MCL, and LCL are intact. Remaining flexor and extensor tendons are intact. Fluid: Small volume joint fluid. Small Dickson's cyst
--- NOTE | 2024-06-27 14:14 | PC.NURSE ---
Report to the Outpatient Waiting Room, entrance under the green pavilion located off [facility], at time _1000 on date __06/29/24 . Planned Procedure Time: __1200 . Time changes happen often and if your time is changed the preop area will call you the afternoon before. - You and your visitor will be asked to self-screen and do not enter if you have any COVID symptoms. - A mask is optional within the hospital at this time. Patients may have clear liquids (water, carbonated beverages, clear teas, apple juice) until 3 hours prior to surgery( 9:00 AM) with a maximum of 20 ounces. - No food from midnight until time of surgery - Infants may have breast milk until 4 hours before surgery, infant formula 6 hours prior to surgery. - Children will be allowed to drink immediately following surgery. If applicable, please bring a bottle or sippy cup to assist with drinking. Juice, water, soda, and popsicles are readily available. For infants on formula, please bring formula the day of surgery. Pacifiers are allowed. Take the following medications with a SIP of water the morning of surgery: ____PREGABALIN DO NOT STOP ANY OF YOUR OTHER PRESCRIPTION MEDICATIONS PRIOR TO SURGERY ?EXCEPT THE FOLLOWING Medications to discontinue per physician HOLD ALL VITAMINS 3 DAYS PRE OP.PT STATES LAST DOSE 06/27/24___DICLOFENAC PER DR DE LA ROSA Please no make-up, nail frisian, hairspray, perfume, deodorant, or body powder the day of surgery. No jewelry (including any body piercings) or valuables the day of surgery, leave them at home. Please take a shower or bath the night before, or the morning of, surgery with an antibacterial soap. Wear comfortable, loose fitting clothing. Children are encouraged to wear pajamas. - Jewelry must be removed prior to entering the operating room. Rings and piercings that are not removed may be cut off. - The hospital will not accept responsibility for valuables. - Please leave all valuables, including medications, at home the day of surgery. If you are going home after surgery, a licensed water taxi driver must drive you home. - NO public transportation without another adult if you receive anesthesia. - We recommend that an adult stay with you for 24 hours following discharge. - We also recommend that you do not drive, make important decision, drink alcoholic beverages, or take any drugs that were not prescribed by your health care provider for at least 24 hours after your discharge time. For Pediatric surgeries, we recommend two adults accompany the child home. Follow any additional instructions given to you from your surgeon. If you or anyone in your household have experienced Covid symptoms in the past week, please notify your surgeon or the nurse liaison at the phone number below for possible testing. Telephone instructions given to __PATIENT and asked if any additional questions and then verbalized understanding. Patient advised to call surgeon office or pre surgery nurse liaison [phone] if any additional questions.
[2024-06-27 14:23] VITALS: BMI 34.0
[2024-06-29] VITALS (12 sets, daily range): BP systolic 177–210; BP diastolic 80–102; PULSE 61–90; RESP 14–18; TEMP 36.3–36.4; O2SAT 100
[2024-06-29] MEDS: ACETAMINOPHEN 500 MG TABLET 1000 MG PO (10:25)
[2024-06-29] MEDS: LACTATED RINGERS 1,000 ML 30 ML IV CONT (10:30)
--- NOTE | 2024-06-29 10:31 | P.PNAN_ITS ---
Anes - Initial Pre Proc Eval Procedure: Operation Date: 06/29/24 12:00 Proposed Procedures p Right Knee Arthroscopy, Partial Meniscectomy, Proceed As Indicated - Tre Espinal MD Date/Time: 06/29/24 10:31 Surgeon: Tre Espinal MD Pre Op Diagnosis: right knee medial meniscus tear Patient Data Age: 73 Gender: F Height: 1.63 m Weight: 89.85 kg Allergies Allergy/AdvReac Type Severity Reaction Status Date / Time esomeprazole Allergy Intermediate Rash Verified 06/27/24 14:00 Home Medications Medication Instructions Recorded Confirmed Type Vitamin D3 1 tab-cap PO DAILY 09/23/22 06/27/24 History pregabalin 150 mg capsule (Lyrica) 150 mg PO BID #60 caps 04/05/24 06/27/24 Rx acetaminophen 500 mg capsule 500 mg PO Q6H PRN pain #30 caps 05/28/24 06/27/24 Rx cyclobenzaprine 5 mg tablet 5 mg PO TID PRN muscle spasm #14 05/28/24 06/27/24 Rx tabs amitriptyline 25 mg tablet 25 mg PO PRN PRN Insomnia 06/27/24 06/27/24 History diclofenac sodium 75 mg 75 mg PO PRN PRN Pain 06/27/24 06/27/24 History tablet,delayed release linaclotide 72 mcg capsule 72 mcg PO PRN PRN IBS 06/27/24 06/27/24 History (Linzess) Patient hx anesthesia problems: none Family hx anesthesia problems: none Results Review: All pre-operative results and documents have been reviewed as part of the pre- operative evaluation. COUNT INCLUDES THE [facility] Past Medical History Medical History Breast cancer GERD (gastroesophageal reflux disease) Irritable bowel syndrome Surgical History Surgical History H/O: hysterectomy Family History Family History Mother Family history non-contributory Dementia Father No problems noted. Sibling No problems noted. Social History Social History Smoking status: Never smoker Second hand tobacco smoke exposure: Yes Alcohol intake: current Substance use: never Substance use type: does not use Do You Feel Safe in your Home?: Yes Lack of Transportation: No Lack of Food: Sometimes True Current Housing: I Have Housing Concerned About Future Housing: No Difficulty Paying Gas/Electric Bills: No Difficulty Paying for Meds: No Currently Unemployed: No Education: Associate Degree Difficulty w/ Childcare or Family Care: No Living arrangements: with family Additional living arrangements comments: grandkids Occupation/Education: occupation 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 Informed Consent: The patient's anesthetic plan and its attendant risks and benefits were discussed with the patient/family/POA. Questions were solicited and answers provided to the satisfaction of the patient/family/POA.
[2024-06-29] MEDS: KETOROLAC 15 MG/ML VIAL (*BKC) IV PUSH (10:35)
--- NOTE | 2024-06-29 10:59 | WPDHPUPDATE1 ---
History and Physical Update Update Date/Time: 06/29/24 10:59 History and Physical has been reviewed, including an updated exam of the patient. There are NO changes in the patient's condition. Risks, benefits, and alternatives have been discussed and questions answered. Patient agrees to proceed with procedure.
--- NOTE | 2024-06-29 11:02 | WPDANESEPPF ---
Anes - Initial Pre Proc Eval Procedure: Operation Date: 06/29/24 12:00 Proposed Procedures p Right Knee Arthroscopy, Partial Meniscectomy, Proceed As Indicated - Tre Espinal MD Date/Time: 06/29/24 11:02 Surgeon: Tre Espinal MD Pre Op Diagnosis: right knee medial meniscus tear Patient Data Age: 73 Gender: F Height: 1.63 m Weight: 89.85 kg Last Vital Signs Temp 36.3 C L 06/29/24 10:17 Pulse 77 06/29/24 10:17 Resp 18 06/29/24 10:17 BP 190/80 H 06/29/24 10:17 Pulse Ox 100 06/29/24 10:17 O2 Del Method Room Air 06/29/24 10:17 Allergies Allergy/AdvReac Type Severity Reaction Status Date / Time esomeprazole Allergy Intermediate Rash Verified 06/29/24 10:38 Home Medications Medication Instructions Recorded Confirmed Type Vitamin D3 1 tab-cap PO DAILY 09/23/22 06/29/24 History pregabalin 150 mg capsule (Lyrica) 150 mg PO BID #60 caps 04/05/24 06/29/24 Rx acetaminophen 500 mg capsule 500 mg PO Q6H PRN pain #30 caps 05/28/24 06/29/24 Rx cyclobenzaprine 5 mg tablet 5 mg PO TID PRN muscle spasm #14 05/28/24 06/29/24 Rx tabs amitriptyline 25 mg tablet 25 mg PO PRN PRN Insomnia 06/27/24 06/29/24 History diclofenac sodium 75 mg 75 mg PO PRN PRN Pain 06/27/24 06/29/24 History tablet,delayed release linaclotide 72 mcg capsule 72 mcg PO PRN PRN IBS 06/27/24 06/29/24 History (Linzess) Patient hx anesthesia problems: none Family hx anesthesia problems: none Results Review: All pre-operative results and documents have been reviewed as part of the pre-operative evaluation. [facility] Past Medical History Medical History Breast cancer GERD (gastroesophageal reflux disease) Irritable bowel syndrome Surgical History Surgical History (Updated 06/29/24 @ 11:05 by Patrice Alonzo MD) H/O: hysterectomy History of mastectomy bilateral '23 Family History Family History Mother Family history non-contributory Dementia Father No problems noted. Sibling No problems noted. Social History Social History Smoking status: Never smoker Second hand tobacco smoke exposure: Yes Alcohol intake: current Substance use: never Substance use type: does not use Do You Feel Safe in your Home?: Yes Lack of Transportation: No Lack of Food: Sometimes True Current Housing: I Have Housing Concerned About Future Housing: No Difficulty Paying Gas/Electric Bills: No Difficulty Paying for Meds: No Currently Unemployed: No Education: Associate Degree Difficulty w/ Childcare or Family Care: No Living arrangements: with family Additional living arrangements comments: grandkids Occupation/Education: occupation 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 Gender identity (if verbalized by the patient): Female Sexual Orientation (if Verbalized by the Patient): Straight or Heterosexual Spiritual care concerns: No Anes - Eval Final PreProcedure Day of Procedure 06/29/24 11:02 Patient weight: obese Heart: regular rate and rhythm Lungs: clear to auscultation Airway: Mallampati scale class II and other (upper denture) Neurological: alert and oriented Last oral intake: >/= 8 hours ASA classification: III Emergent: no Anesthetic plan: proceed Anesthesia type and monitoring: general LMA and standard monitoring Results Review: All pre-operative results and documents have been reviewed as part of the pre-operative evaluation. Informed Consent: The patient's anesthetic plan and its attendant risks and benefits were discussed with the patient/family/POA. Questions were solicited and answers provided to the satisfaction of the patient/family/POA.
--- NOTE | 2024-06-29 12:08 | W.PM.PROC2 ---
Procedure Note - Detailed Date of Procedure 06/29/24 Pre-op Diagnosis right knee medial and lateral meniscus tear Post-op Diagnosis Same Procedure Performed RIGHT knee arthroscopy with partial meniscectomy, medially and laterally Surgeon Tre Espinal MD Anesthesia General Findings Meniscal tears and degeneration Description of Procedure Patient brought to operating room # 7. An anesthetic was administered. The knee was sterilely prepped and draped in the usual manner. Standard portals were used. Superior medial portal was used for the outflow cannula, inferior lateral portal was used for the scope, inferior medial portal was used for the instruments. Arthroscopy was performed, the patellar femoral joint degenerative changes. The medial compartment showed a complex tear. The lateral compartment showed a tear as well. The ACL was intact. Using baskets and agapito the meniscal tear was trimmed back to a stable base so the nothing further could be pulled into the joint. Any loose or delaminated fragments were gently trimmed to a stable base. Patient had areas of Grade3 chondromalacia. At this point the instruments were withdrawn, sutures placed and patient left the operating room in satisfactory condition. Estimated Blood Loss 20 Drains No Packing No Pathology None sent Complications No immediate complications Condition Stable Disposition PACU [facility] Billing Surgery - Charge Forward: Surgery Billing ([id number] Athroscopy partial med and lat meniscectomy)
[2024-06-29] MEDS: LABETALOL HCL INJ 100 MG/20 ML VIAL 10 MG IV PUSH (13:00)
--- NOTE | 2024-06-29 13:28 | SUR.PHASEI ---
Dr Alonzo notified by this RN at 1253 that patient's BP is 204/102. TORB for 10mg of labetalol IV. See MAR for administration record. Dr. Alonzo notified again by this RN at 1325 that patient's BP is still 187/80 after administration of labetalol. Per MD no new orders at this time and have patient see primary physician for further management of high blood pressure. Patient and daughter, Palma, made aware.
[2024-06-29] MEDS: oxyCODONE HCL (*CRX) 5 MG TAB IR PO (13:43)
[2024-06-29] MEDS: hydrALAZINE HCL 20 MG/ML VIAL 5 MG IV PUSH ×2 (14:27→14:50)
--- NOTE | 2024-06-29 15:22 | SUR.PHASEII ---
1500: patient on speaker phone with her primary physician. This RN called to room to talk with patient's primary physician, Dr. Gaffney. Informed Dr. Gaffney about patient's high blood pressure. Dr. Gaffney highly suggested to patient that she head to the Emergency Department. The patient stated I can't go to the ER with my knee like this . Dr. Gaffney then told this RN,patient and patient's family that if she does not go to the Emergency Department. Dr. Gaffney stated if the patient does not go to the ER then she should take her prescribed antihypertensive six hours after her last dose of IVP hydralazine. The patient and patient's family understood this as instructed to them. Patient meets criteria to dc otherwise.
== END 2024-06-29 15:30 | disposition home or self-care (01) ==
PROVIDERS: PCP Internal Medicine; Visit Provider Orthopaedic Surgery
PROC: (CPT 29870; principal; 2024-06-29 12:00)
DX: M23.331 Other meniscus derangements, other medial meniscus, right knee (principal); M23.361 Other meniscus derangements, other lateral meniscus, right knee; K21.9 Gastro-esophageal reflux disease without esophagitis; K58.9 Irritable bowel syndrome, unspecified; Z85.3 Personal history of malignant neoplasm of breast
CPT/HCPCS: 29880; A9270; J0360; J1100; J1885; J2405; J2704; J3010; J7120

== ENCOUNTER 2024-10-11 15:50 | Outpatient (CLI) | payer OTHER, SELFPAY ==
--- NOTE | ~2024-10-11 | US_ITS ---
EXAMINATION: US venous doppler [facility] DATE: 10/11/2024 16:32 INDICATION: Lower extremity edema. TECHNIQUE: Grayscale images without and with compression and Doppler images of the bilateral lower ex tremity veins were obtained. COMPARISON: Right DVT ultrasound 05/29/2024 FINDINGS: The right common femoral vein, profunda (deep) femoral vein, femoral vein, popliteal vein, peroneal v ein, posterior tibial veins, gastrocnemius vein, and greater saphenous vein are patent. The left common femoral vein, profunda (deep) femoral vein, femoral vein, popliteal vein, peroneal v ein, posterior tibial veins, gastrocnemius vein, and greater saphenous vein are patent. IMPRESSION: Patent bilateral lower extremity veins. No evidence of deep venous thrombosis. Reviewed, dictated and finalized at location [employer]
== END 2024-10-11 15:51 | disposition home or self-care (01) ==
PROVIDERS: PCP Internal Medicine; Visit Provider Internal Medicine
DX: R60.9 Edema, unspecified (principal)
CPT/HCPCS: 93970

== ENCOUNTER 2025-11-01 08:57 | Outpatient (CLI) | payer MEDICARE, SELFPAY ==
--- NOTE | ~2025-11-01 | XR_ITS ---
EXAMINATION: XR shoulder RT min 2V, 11/01/2025 9:05 WATER QUALITY SPECIALIST HISTORY: rt shoulder pain x 6 days, NKI COMPARISON: No comparisons available. Findings: No acute fracture or malalignment. Moderate degenerative changes Soft tissues unremarkable. Impression: No acute fracture or malalignment. Reviewed, dictated and finalized at location P. R QUALITY SPECIALIST Impression: No acute fracture or malalignment.
--- OUTSIDE RECORDS SUMMARY | 2025-11-01 09:54 | XMS_ITS ---
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 I am going to 1st start by referral to therapy to work on some lymphedema exercises. We will see her back in 6-8 weeks after they have given her treatments to see if this has helped with the symptoms. 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 I have discussed continuing to cover and pad the area as needed for comfort as well as to continue to wear the compression bra to limit fluid accumulation. She is okay to return to work in 2 weeks. We have discussed again reconstruction options. If she wants to just listen to options from a plastic surgery I would be happy to make a referral. In the meantime she has the information for 1 of the local prosthetic companies for bra options. She will call us back with any further questions or concerns. Assessment & Plan (12/25/2022 10:04 AM DORMITORY SUPERVISOR): Steri-Strips have been removed and the incisions are healing quite nicely. Both drains have been removed today as well. The patient can continue with gauze and tape as well as the support brought. Once the drain sites heal in the next 48 hours or so if she would like it would be okay to leave the incisions open to air without any further gauze or tape. She could of course cover them if it offers her some comfort if things rubbed the incisions. We will see her back in 2 weeks to see how she is doing. Assessment & Plan (12/18/2022 1:32 PM DORMITORY SUPERVISOR): The patient's incisions are healing in quite well. We will leave the drains for 1 further week. They will continue with the support bra and padding. Pathology has been reviewed. Thankfully there was no residual tumor after her neoadjuvant treatment. We will see her back next week to remove the drains. She will call sooner if anything changes. Assessment & Plan (07/15/2022 2:51 PM CDT): Extensive talks were had with the patient about further course of action. We have discussed we need all tumor markers to return prior to formal plan. We have discussed that if the tumor is positive for Herceptin this likely would mean chemotherapy 1st. Initial pathology report was suggestive of a breast cancer but not 100% positive. I am going to send a referral to Oncology to further weigh in to see if they think preoperative PET scan or any other imaging would be beneficial. Given her past history of prior radiation she likely is not a candidate for breast conserving therapy again. I will still send a referral to the radiation oncologist to weigh in further. We have preliminarily talked about mastectomy and potential reconstruction options. Once final pathology has returned and she is been seen by Medical and Radiation Oncology, we will call the patient back and formulate a definitive plan going forward. They are in understanding of the plan. Non-toxic multinodular goiter 11/17/2017 Assessment & Plan (04/17/2022 11:03 AM CDT): Detected on Ultrasound done October 2017 showed multiple bilateral small nodules/ cysts, but dominant nodule on the right lobe, mixed and about 1.4 cm in size. FNA biopsy was benign in November 2017. Stable in size with Ultrasound in April/2018, and May/2021 Patient is clinically euthyroid TSH of 1.16 on 03/11/19. Plan: I would like to continue to monitor thyroid. Schedule thyroid Ultrasound . Assessment & Plan (04/18/2021 10:33 AM CDT): Detected on Ultrasound done October 2017 showed multiple bilateral small nodules/ cysts, but dominant nodule on the right lobe, mixed and about 1.4 cm in size. FNA biopsy was benign in November 2017. Stable in size with Ultrasound in April/2018, -February/2019 and May/2020 Patient is clinically euthyroid TSH of 1.16 on 03/11/19. Plan: The diagnosis reviewed with patient. I would like to continue to monitor thyroid. Schedule thyroid Ultrasound . Back pain of lumbar region with sciatica 11/28/2 017 Assessment & Plan (10/13/2017 11:44 AM DORMITORY SUPERVISOR): Home stretching exercise handout was provided to the patient. We will place her on a Medrol Dosepak for anti-inflammatory effect. We discussed more formal physical therapy. She works during the day and declines at the present time. She was encouraged to follow up here with any change in, worsening, or non improvement in her condition. Hyperlipidemia 01/07/2016 Overview (02/19/2017): Hyperlipidemia Hyperparathyroidism 04/01/2014 Overview (02/18/2017): Hyperparathyroidism Irritable bowel syndrome 04/01/2014 Overview (02/19/2017): IRRITABLE BOWEL SYNDROME Constipation 04/01/2014 Overview (02/19/2017): CONSTIPATION NOS Menopausal symptom 04/01/2014 Overview (02/19/2017): Menopausal symptoms Vitamin D deficiency 04/01/2014 Overview (02/19/2017): Vitamin D deficiency Atopic rhinitis 04/01/2014 Overview (02/19/2017): Allergic rhinitis Personal history of primary malignant neoplasm o f breast 08/29/2013 Overview (02/19/2017): History of breast cancer Current Treatment and Therapy Plans No current plan information found. Past Treatment and Therapy Plans Oncology Chemotherapy Treatment Plan Name Start Date Discontinue Date Treatment Medications Discontinue Reason Plan Provider Cycles TC: (DOCEtaxe l / Cyclophos phamide) 21 Day Cycles - Breast 2 01/08/2023 cycloPHOSphamide (CYTOXAN) IVPB (vial 20 mg/mL) ([id number])DOCEtaxel (TAXOTERE) IVPB in 250 mL (vial 20mg/mL) Therapy Complete German Velázquez MD 4 of 4 cycles started Oncology Supportive Care Therapy Plan Plan Name Start Date Discontinue Date Treatment Medications Discontinue Reason Plan Provider Hydration Therapy Plan 09/08/2022 01/08/2023 No medications scheduled. Therapy Complete Biciocchi, Maggie D., BULKING MACHINE OPERATOR Specialty Infusion Treatment Plan Name Start Date Discontinue Date Treatment Medications Discontinue Reason Plan Provider HYDRATION THERAPY PLAN 09/29/2022 01/08/2023 No medications scheduled. Therapy Complete German Velázquez MD Lifetime Dose Tracking * Chemical Lifetime Dose Automatic Entry Manual Entr y Fluoro Time 0.66 minutes 0.66 minutes 0 minutes cyclophosphamide 2,387.849 mg/m2 (4,680 mg) 2,387.849 mg/m2 (4,680 mg) 0 mg/m2 (0 mg) Air kerma at the reference point (Ka,r) 3.11 mGy 3.11 mGy 0 mGy Resolved Problems Problem Noted Date Diagnosed Date Resolved Date Viral URI with cough 07/26/2021 021 Solitary nodule of right lobe of thyroid 10/13/2017 11/17/2017 Assessment & Plan (10/13/2017 11:45 AM DORMITORY SUPERVISOR): I recommend we proceed with ultrasound of the thyroid, TSH, and free T4. Further direction pending these results. She has been instructed to contact the office if she has not heard from me within 3 days of having this testing completed. She verbalized understanding and is in agreement.
--- OUTSIDE RECORDS SUMMARY | 2025-11-01 09:54 | XMS_ITS | Clinical Summary ---
Author Organization [facility] Medical Office Building A Address [address] [place] [address] Care Team Providers Care Property Appraiser Name Role Phone Rohan Simon MD Unavailable Sy Siddiqui MD Unavailable German Velázquez MD Unavailable [phone] Michael Olsen MD Primary Care Provider [phone] Allergies Active Allergy Reactions Criticality Noted Date Comments Esomeprazole Hives Medium Medications cholecalciferol (VITAMIN D3) 2,000 unit tablet take 2 tabs daily. 0 2 Active linaclotide (LINZESS) 145 mcg capsule take 1 capsule by oral route every day on an empty stomach at least 30 minutes before 1st meal of the day swallowing whole 90 3 5 Active pregabalin (LYRICA) 75 mg capsule 2 Active cyanocobalamin (Vitamin B-12) 1,000 mcg tabletIndicatio ns:Prevention of Vitamin B12 Deficiency Take 1 tablet (1,000 mcg total) by mouth daily Active amitriptyline (ELAVIL) 25 mg tablet Take 1 tablet (25 mg total) by mouth nightly 30 tablet 11 3 Active chlorthalidone (HYGROTON) 25 mg tablet Take 0.5 tablets (12.5 mg total) by mouth daily 4 Active Active Problems Problem Noted Date Diagnosed Date Bilateral carpal tunnel syndrome 06/17/2023 S/P bilateral mastectomy 12/11/2022 Left breast mass 12/10/2022 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 I [...] concerns. Assessment & Plan (12/25/2022 10:04 AM BUSINESS CONTINUITY CONSULTANT): Steri-Strips have been removed and the incisions [...] doing. Assessment & Plan (12/18/2022 1:32 PM BUSINESS CONTINUITY CONSULTANT): The patient's incisions are healing in quite [...] in size with Ultrasound in April/2018, and May/2020 Patient is clinically euthyroid TSH of 1.16 on 03/11/19. Plan: The diagnosis reviewed with patient. I would like to continue to monitor thyroid. Schedule thyroid Ultrasound . Back pain of lumbar region with sciatica 017 Assessment & Plan (10/13/2017 11:44 AM BUSINESS CONTINUITY CONSULTANT): Home stretching exercise handout was provided to [...] 08/29/2013 Overview (02/19/2017): History of breast cancer Resolved Problems Problem Noted Date Diagnosed Date Resolved Date Viral URI with cough 07/26/2021 021 Solitary nodule of right lobe of thyroid 10/13/2017 11/17/2017 Assessment & Plan (10/13/2017 11:45 AM BUSINESS CONTINUITY CONSULTANT): I recommend we proceed with ultrasound of the thyroid, TSH, and free T4. Further direction pending these results. She has been instructed to contact the office if she has not heard from me within 3 days of having this testing completed. She verbalized understanding and is in agreement. Encounters Date Type Department Care Team Description 08/16/2025 10:15 AM CDT Office Visit [facility] [address] [place] [address] [address], [place] [address] Hector Bond NP Primary osteoarthritis of right knee (Primary Dx) from Last 3 Months Immunizations Immunization Administration Dates Next Due Moderna SARS-CoV-2 Monovalent Vaccination (12+ Y RS) 01/04/2021,12/07/2020 Surgical History Surgery Date Site/Laterality Comments HYSTERECTOMY 11/16/1995 - 11/15/1996 Hysterectomy OTHER SURGICAL HISTORY DCIS left breast: surgery, radiation, and tamoxifen. OTHER SURGICAL HISTORY 11/16/2000 - 11/15/2001 Fibroids: Hysterectomy BREAST SURGERY Left lymph nodes removed OOPHORECTOMY BREAST LUMPECTOMY 11/16/2012 - 11/15/2013 Left w radiation COLONOSCOPY BREAST BIOPSY 06/16/2022 Left malignant us bx MASTECTOMY COMPLETE / SIMPLE 12/10/2022 Bilateral Medical History Medical History Date Comments Hx Other Medical IBS Hx Other Medical Menopausal symp toms Hx Other Medical disc disease, n paulina and lower spine Hx Other Medical irritable bowel Hx Other Medical hot flashes Constipation Constipation Hx Other Medical 2012 DCIS left breas t Hx Other Medical Fibroids Breast CA (HCC) 2013 left History of radiation therapy 2013 lef t breast ca GERD (gastroesophageal reflux disease) History of chemotherapy 08/16/2022 chemo fo r new left breast ca Irritable bowel syndrome Family History Medical History Relation Name Comments Other Brother 1 ray Alive and well; Other Brother 2 hector Alive and well; Other Brother 3 ada Alive and well; Other Brother 4 wili Alive and well; Other Brother 5 shana Drug addiction; Other Father in car acc ident; Cause of : in car accident Lung cancer Father's Sister 2 Cancer, lio ng; Dementia Mother Dementia; Diabetes Mother Diabetes mellit us; Other Mother old age; Cause of : old age Breast cancer Paternal cousin Diabetes Sister 1 [place] Diabetes mellit us; Diabetes Sister 2 Diabetes mellit us; Ovarian cancer Neg Hx Thyroid cancer Neg Hx Relation Name Status Comments Brother 1 nikolay Alive Brother 2 hector Alive Brother 3 ada Alive Brother 4 wili Alive Brother 5 shana Cousin 1 Alive Cousin 2 paternal Father Father's Sister 1 Alive Father's Sister 2 Mother Paternal cousin Sister 1 [place] Alive Sister 2 Social History Tobacco Use Types Packs/Day Years Used Date Smoking Tobacco: Never Smokeless Tobacco: Never Tobacco Cessation:Counseling Given: Not Answered Alcohol Use Standard Drinks/Week Comments Yes 0 (1 standard drink = 0.6 oz pur e alcohol) Social Connection and Isolation Panel Answer Date Recorded In a typical week, how many times do you talk on the phone with family, friends, or neighbors? More than three times a week 12/12/2022 Frequency of Social Gatherin gs with Friends and Family Not on file 12/12/2022 How often do you attend [facility] or episcopalian services? Patient declined 12/12/2022 Do you belong to any clubs o r organizations such as jainism groups, unions, fraternal or athletic groups, or school groups? Patient declined 12/12/2022 How often do you attend meet ings of the clubs or organizations you belong to? Patient declined 12/12/2022 Are you , , di vorced, , never , or living with a partner? 12/12/2022 AUDIT-C Answer Date Recorded Q1: How often do you have a drink containing alcohol? Never 06/15/2025 Q2: How many drinks containi ng alcohol do you have on a typical day when you are drinking? Patient does not drink Q3: How often do you have si x or more drinks on one occasion? Never 06/15/2025 Overall Financial Resource Strain (CARDIA) Answe r Date Recorded How hard is it for you to pa y for the very basics like food, housing, medical care, and heating? Not hard at all 12/12/2022 PHQ-2 Answer Date Recorded PHQ-2 Total Score (If total score is 3 or more points, staff should administer the PHQ-9) 0 12/10/2022 Hunger Vital Sign Answer Date Recorded Within the past 12 months, y ou worried that your food would run out before you got the money to buy more. Never true 12/12/19 23 Within the past 12 months, t he food you bought just didn't last and you didn't have money to get more. Never true 12/12/2022 PRAPARE - Transportation Answer Date Re corded In the past 12 months, has l ack of transportation kept you from medical appointments or from getting medications? No 11/17 In the past 12 months, has l ack of transportation kept you from meetings, work, or from getting things needed for daily living? No 12/12/2022 Personal Safety Answer Date Recorded Have you ever been in or are you currently in a harmful physical or emotional relationship or is someone making you feel afraid or unsafe? Denies 08/24/2023 Comments No Sex and Gender Information Value Date Recorded Sex Assigned at Not on file Legal Sex Female 11:49 PM BUSINESS CONTINUITY CONSULTANT Gender Identity Not on file Sexual Orientation Not on file Obstetrics History Para Term AB IAB SAB Ectopic Multiple Livin g Live Births 3 3 3 Date Outcome GA Total Labor Labor/2nd/3rd Weight Sex Type Anes PTL Vicki A1 A5 Name Clin Term Term Term Last Filed Vital Signs Vital Sign Reading Time Taken Comments Blood Pressure 122/69 08/16/2025 10:22 AM CDT Pulse 69 08/16/2025 10:22 AM CDT Temperature 35.9 C (96.6 F) 06/15/2025 11:05 AM CDT Respiratory Rate 18 06/15/2025 11:05 AM CDT Oxygen Saturation 99% 06/15/2025 11:05 AM CDT Inhaled Oxygen Concentration - - Weight 84.4 kg (186 lb) 08/16/2025 10:22 AM CDT Height 162.6 cm (5' 4) 08/16/2025 10:22 AM CDT Body Mass Index 31.93 08/16/2025 10:22 AM CDT Plan of Treatment Health Maintenance Due Date Last Done Comments Colon Cancer Screening-Colonoscopy 1950 Hepatitis C Screening 1950 Osteoporosis Screening-Bone Density Scan 1950 DTaP/Tdap/Td Vaccine (1 - Tdap) 1961 Hepatitis B Screening 1968 Pneumococcal vaccine 65+ (1 of 2 - PCV) 1969 Well Visit 65+ 2015 Breast Cancer Screening-Mammogram 06/07/2023 06/07/2022, 02/28/2021, 02/01/2020, Additional history exists Depression Screening 11/18/2023 11/18/2022, 10/13/20 17 Fall Risk Assessment 12/12/2023 12/12/2022, 10/17/2022, 09/29/2022, Additional history exists Zoster Vaccine (2 of 2) 02/08/2025 12/14/2024 Covid-19 Vaccine ( - 2024-2 6 season) 2025 10/11/2021, 01/04/2021, 12/07/2020 Influenza Vaccine (#1) 2025 Medical Devices Implanted Type Area Equipment Operat0R Device Identifier Shelf Expiration Date Model / Serial / Lot [employer] Powerport Mri Airguard 8fr 1 Lumen Attachable Catheter Latex Free [id number] - [id number] Implanted:Qty: 1 on 08/11/2022 by Rohan Simon MD at [facility] Right: Chest Arturo Boundary 06/15/2023 [id number] / / [id number] Procedures Procedure Name Priority Date/Time Associated Diagnosis Comments NM ARTHROCENTESIS ASPIR&/INJ MAJOR JT/BURSA W/O US Routine 08/16/2025 10:15 AM CDT Primary osteoarthritis of right knee SCREENING MAMMOGRAM BILATERAL W SANTI Schedule Routine, Read Routine (OP Routine) 06/07/2022 1:10 PM CDT Screening mammogram, encounter for from Last 3 Months or Most Recently Relevant to Health Maintenance Results * NM ARTHROCENTESIS ASPIR&/INJ MAJOR JT/BURSA W/O US (08/16/2025 10:15 AM CDT) Narrative Hector Bond NP - 08/16/2025 10:15 AM CDT Hector Bond NP 08/16/2025 10:34 AM Large Joint (Hip, Knee, Shoulder) Injection: R knee Performed by: Hector Bond NP Authorized by: Hector Bond NP Large Joint Injection/Aspiration: Consent Given by: Patient Timeout: prior to procedure the correct patient, procedure, and site was verified Verbal consent obtained: Yes Supporting Documentation: Indications: Pain Procedure Details: Location: Knee Site: R knee Prep: patient was prepped using a clean technique Needle Size: 22 G Approach: Anterolateral Ultrasound guided: No Fluroscopic guidance: No Medications: 3 mL lidocaine 20 mg/mL (2 %); 80 mg methylPREDNISolone acetate 80 mg/mL Patient tolerance: Patient tolerated the procedure well with no immediate complications Hector Bond NP IN CLINIC/BEDSIDE ORDERA BLES Final Result * (ABNORMAL) Screening Mammogram Bilateral W Santi (06/07/2022 1:10 PM CDT) Anatomical Region Laterality Modality Breast Bilateral Mammography 06/09/2022 12:0 2 PM CDT Addenda Addendum by Alo Padilla MD on 06/16/2022 5:01 PM CDT Please note the correction to the localization of the grouped calcifications described in the body of the report and in impression point #2. The grouped calcifications are in the outer LEFT breast at middle depth. The findings and impression are otherwise unchanged. Left breast diagnostic mammogram and ultrasound are recommended. I discussed this correction with Dr. Gaffney at 11:27 AM on 06/13/2022. Electronically signed by: Alo Padilla M.D. Impressions 06/09/2022 12:02 PM CDT 1. New 17 mm upper outer left breast mass at middle depth. Recommend diagnostic left breast mammogram and ultrasound. 2. Grouped calcifications in the outer right breast at middle depth. Recommend diagnostic left breast mammogram and ultrasound. 3. No evidence of malignancy in the right breast. BI-RADS: 0 - Additional imaging evaluation is necessary. The patient will be contacted. Electronically signed by: Alo Padilla M.D. Narrative 06/09/2022 12:02 PM CDT EXAMINATION: SCREENING MAMMOGRAM BILATERAL W SANTI ORDERING HEALTHCARE PROVIDER: SELF SCREENING MAMMOGRAM HISTORY: Routine screening mammography. COMPARISON: 02/28/2021, 02/01/2020, 02/04/2019, 01/28/2018, 09/18/2016, 09/01/2015 TECHNIQUE: CC and MLO views of the bilateral breasts were obtained with digital technique using breast tomosynthesis with C view. Computer aided detection was utilized. FINDINGS: DENSITY: There are scattered fibroglandular elements in the bilateral breasts. BREASTS: There are postoperative changes in the left breast. There is a new 17 mm mass in the upper outer left breast at middle depth. There are grouped calcifications in the outer right breast at middle depth on the CC view, which localize to the lower breast on tomosynthesis images. No definite correlate is seen on the MLO view. There are no suspicious masses, suspicious calcifications, or other suspicious findings in the right breast. Procedure Note Alo Padilla MD - 06/09/2022 EXAMINATION: SCREENING MAMMOGRAM BILATERAL W SANTI ORDERING HEALTHCARE PROVIDER: SELF SCREENING MAMMOGRAM HISTORY: Routine screening mammography. COMPARISON: 02/28/2021, 02/01/2020, 02/04/2019, 01/28/2018, 09/18/2016, 09/01/2015 TECHNIQUE: CC and MLO views of the bilateral breasts were obtained with digital technique using breast tomosynthesis with C view. Computer aided detection was utilized. FINDINGS: DENSITY: There are scattered fibroglandular elements in the bilateral breasts. BREASTS: There are postoperative changes in the left breast. There is a new 17 mm mass in the upper outer left breast at middle depth. There are grouped calcifications in the outer right breast at middle depth on the CC view, which localize to the lower breast on tomosynthesis images. No definite correlate is seen on the MLO view. There are no suspicious masses, suspicious calcifications, or other suspicious findings in the right breast. IMPRESSION: 1. New 17 mm upper outer left breast mass at middle depth. Recommend diagnostic left breast mammogram and ultrasound. 2. Grouped calcifications in the outer right breast at middle depth. Recommend diagnostic left breast mammogram and ultrasound. 3. No evidence of malignancy in the right breast. BI-RADS: 0 - Additional imaging evaluation is necessary. The patient will be contacted. Electronically signed by: Alo Padilla M.D. us Self Screening Mammogram IMG MAMMO PROCEDURES Ed ited Result - Final from Last 3 Months or Most Recently Relevant to Health Maintenance Insurance [facility] Advance Directives For more information, please contact: [phone] Documents on File Type Date Recorded Patient Log Chain Worker Expl anation ADVANCE DIRECTIVE 12/15/2022 10:03 AM Mariah r of Director Intelligence Analysis Programs-Medical * Full Code (Latest Code Status on File) Date Activated Date Inactivated Comments 12/10/2022 5:36 PM 12/12/2022 8:01 PM Care Teams Property Appraiser Relationship Specialty Start Date End Date Michael Olsen MD PCP - General Internal Medicine 03/27/25 Rohan Simon MD Referring Physician General Surgery 07/30/22 Sy Siddiqui MD Referring Physician Family Practice 01/08/23 German Velázquez MD Medical Oncologist/Battery Installer Hematology and Oncology 04/08/23
--- OUTSIDE RECORDS SUMMARY | 2025-11-01 09:54 | XMS_ITS | Encounter Summary ---
Author Organization [facility] Address [address] [place] [address] Phone Care Team Providers Care Low Pressure Firer Name Role Phone Amber Gaffney MD Primary Care Provider [phone] Michael Olsen MD Primary Care Provider [phone] Encounter Details Date Type Department Care Team (Late st Contact Info) Description 06/16/2022 Transcribe Orders [facility] Scheduling [address] [place] [address] Amber Gaffney MD [place] [address] Mass of left breast, unspecified quadrant (Primary Dx) Social History Tobacco Use Types Packs/Day Years Used Date Smoking Tobacco: Never Smokeless Tobacco: Never Alcohol Use Standard Drinks/Week Comments Not Currently 0 (1 standard drink = 0.6 oz pur e alcohol) Comments Unknown Sex and Gender Information Value Date Recorded Sex Assigned at Not on file Legal Sex Female 8:07 PM CDT Gender Identity Not on file Sexual Orientation Not on file documented as of this encounter Plan of Treatment Upcoming Encounters Date Type Department Care Team (Late st Contact Info) Description 02/06/2026 11:40 AM CDT Office Visit [facility] - Primary Care - [place] [address] [place] [id number] Michael Olsen MD [address] [place] [address] documented as of this encounter Visit Diagnoses Diagnosis Mass of left breast, unspecified quadrant- Primary documented in this encounter Care Teams Low Pressure Firer Relationship Specialty Start Date End Date Amber Gaffney MD [address] [facility] [place] [address] PCP - General Internal Medicine 01/09/20 12/28/24 Michael Olsen MD [address] [facility] [place] [address] PCP - General Internal Medicine 12/29/24 documented as of this encounter
--- OUTSIDE RECORDS SUMMARY | 2025-11-01 09:55 | XMS_ITS | Encounter Summary ---
Author Organization [facility] Address [address] [place] [address] Care Team Providers Care [employer] Maintenance Worker Name Role Phone Amber Gaffney MD Primary Care Provider [phone] Aakash escobar MD PhD Unavailable [phone] German Velázquez MD Unavailable [phone] oRhan Simon MD Unavailable Sy Siddiqui MD Unavailable [phone] German Velázquez MD Unavailable [phone] Michael Olsen MD Primary Care Provider [phone] Encounter Details Date Type Department Care Team (Late st Contact Info) Description 05/04/2020 Telephone [facility] [address] [place] [address] Alisia Silva, NONA Social History Tobacco Use Types Packs/Day Years Used Date Smoking Tobacco: Never Smokeless Tobacco: Never Alcohol Use Standard Drinks/Week Comments Yes 0 (1 standard drink = 0.6 oz pur e alcohol) Comments No Sex and Gender Information Value Date Recorded Sex Assigned at Not on file Legal Sex Female 11:49 PM WRAPPER OPERATOR Gender Identity Not on file Sexual Orientation Not on file documented as of this encounter Plan of Treatment Not on file documented as of this encounter Visit Diagnoses Not on filedocumented in this encounter Additional Health Concerns Infection Onset Date Last Indicated Resolved Time MRSA Comment:Germ watcher auto flagging. Specimen: ABSCESS Site: LEG, RIGHT 12/28/2015 12/28/201507/03 5:00 AM CDT COVID: Suspected 06/16/2021 06/16/2021 06/16/2021 2:42 PM CDT COVID: Suspected 07/26/2021 07/26/2021 07/26/2021 1:54 PM CDT documented as of this encounter Care Teams [employer] Maintenance Worker Relationship Specialty Start Date End Date Amber Gaffney MD PCP - General 04/05/14 03/26/25 Michael Olsen MD [address] [place] [id number] PCP - General Internal Medicine 03/27/25 Aakash Nunez MD PhD [address] [place] [address] Radiation Oncologist Radiation Oncology 07/30/22 German Velázquez MD [address] [place] [address] Medical Oncologist/Light Air Defense Artillery Crewmember Hematology and Oncology 07/30/22 04/07/23 Rohan Simon MD [address] [place] [address] Referring Physician General Surgery 07/30/22 Sy Siddiqui MD [address] [place] [address] Referring Physician Family Practice 01/08/23 German Velázquez MD [address] [place] [address] Medical Oncologist/Light Air Defense Artillery Crewmember Hematology and Oncology 04/08/23 documented as of this encounter
--- OUTSIDE RECORDS SUMMARY | 2025-11-01 09:55 | XMS_ITS | Clinical Summary ---
Author Organization [facility] Address [address] [place] [address] Phone Care Team Providers Care Mold Stamper Name Role Phone Michael Olsen MD Primary Care Provider Allergies Active Allergy Reactions Criticality Noted Date Comments Esomeprazole Rash 11/05/2021 Medications VITAMIN D PO Take by mouth daily. Active Ascorbic Acid (VITAMIN C PO) Take by mouth daily. Active chlorthalidone (HYGROTON) 25 MG Tablet Take 25 mg by mouth daily. Active linaclotide (Linzess) 145 MCG Capsule 145 mcg. 01/11/20 15 Active lidocaine (LMX) 4 % Cream Apply 1 Application. 01/08/20 23 Active famotidine (PEPCID) 20 MG Tablet Take 1 Tablet by mouth 2 times daily. 60 Tablet 3 03/28/20 25 Active pregabalin (LYRICA) 200 MG CapsuleIndications:N europathy due to chemotherapeutic drug Take 1 Capsule by mouth 2 times daily. 30 Capsule 03/28/20 25 Active Additional Information Patient not taking.Reported on 09/14/2025 celecoxib (CeleBREX) 200 MG Capsule Take 1 Capsule by mouth daily. 90 Capsule 07/28/20 25 Active Active Problems Problem Noted Date Diagnosed Date Bilateral carpal tunnel syndrome 08/08/2025 Essential hypertension, benign 12/29/2024 Neuropathy due to chemotherapeutic drug 12/29/19 25 Chronic foot pain, left 12/29/2024 Irritable bowel syndrome with constipation 12/29 Chronic pain of right knee 12/29/2024 S/P bilateral mastectomy 12/11/2022 Malignant neoplasm of upper- outer quadrant of left breast in female, estrogen receptor negative 07/15/2022 Non-toxic multinodular goiter 11/17/2017 Vitamin D deficiency 04/01/2014 Overview (12/29/2024): Vitamin D deficiency Encounters Date Type Department Care Team Description 09/14/2025 Nurse Triage [facility] Central Call Center [address] [place] [address] Michael Olsen MD Advice Only; Cough; Sore Throat; Chest Congestion 08/08/2025 11:40 AM CDT Office Visit [facility] - Primary Care - [place] [address] [place] [address] Michael Olsen MD Essential hypertension, benign (Primary Dx); Neuropathy due to chemotherapeutic drug (HCC); Bilateral carpal tunnel syndrome; Chronic pain of right knee Discharge Disposition: Discharged to home or Selfcare 08/08/2025 Travel from Last 3 Months Immunizations Immunization Administration Dates Next Due Zoster Vaccine Recombinant 12/14/2024 Family History Medical History Relation Name Comments Dementia Mother Relation Name Status Comments Father Mother Social History Tobacco Use Types Packs/Day Years Used Date Smoking Tobacco: Never Passive Smoke Exposure: Never Smokeless Tobacco: Never Tobacco Cessation:Counseling Given: No Alcohol Use Standard Drinks/Week Comments Not Currently 0 (1 standard drink = 0.6 oz pur e alcohol) [facility] Utilities Answer Date Recorded In the past 12 months has [employer], oil, or water [facility] threatened to shut off services in your home? Patient declined 03/27/2025 Social Connection and Isolation Panel Answer Date Recorded In a typical week, how many times do you talk on the phone with family, friends, or neighbors? More than three times a week 03/27/2025 How often do you get togethe r with friends or relatives? Once a week 03/27/2025 How often do you attend chur or oriental orthodox services? More than 4 times per year 03/27/2025 Do you belong to any clubs o r organizations such as methodist groups, unions, fraternal or athletic groups, or school groups? Yes 03/27/2025 How often do you attend meet ings of the clubs or organizations you belong to? 1 to 4 times per year 03/27/2025 Are you , , di vorced, , never , or living with a partner? 03/27/2025 AUDIT-C Answer Date Recorded Q1: How often do you have a drink containing alcohol? Never 03/27/2025 Q2: How many drinks containi ng alcohol do you have on a typical day when you are drinking? Patient does not drink Q3: How often do you have si x or more drinks on one occasion? Never 03/27/2025 Overall Financial Resource Strain (CARDIA) Answe r Date Recorded How hard is it for you to pa y for the very basics like food, housing, medical care, and heating? Not very hard 03/27/2025 PHQ-2 Answer Date Recorded Total Score - Questions 1-9 0 12/17 [facility] - Occupational Stress Questionnaire Answer Date Recorded Do you feel stress - tense, restless, nervous, or anxious, or unable to sleep at night because your mind is troubled all the time - these days? Not at all 03/27/2025 Exercise Vital Sign Answer Date Recorde d On average, how many days pe r week do you engage in moderate to strenuous exercise (like a brisk walk)? 1 day 03/27/2025 On average, how many minutes do you engage in exercise at this level? 20 min 03/27/2025 Hunger Vital Sign Answer Date Recorded Within the past 12 months, y ou worried that your food would run out before you got the money to buy more. Patient declined Within the past 12 months, t he food you bought just didn't last and you didn't have money to get more. Patient declined 10/2025 PRAPARE - Transportation Answer Date Re corded In the past 12 months, has l ack of transportation kept you from medical appointments or from getting medications? No 03/16 In the past 12 months, has l ack of transportation kept you from meetings, work, or from getting things needed for daily living? No 03/27/2025 Housing Stability Vital Sign Answer Rowdy e Recorded In the last 12 months, was t here a time when you were not able to pay the mortgage or rent on time? Patient declined 03/27/20 25 In the past 12 months, how m any times have you moved where you were living? 0 03/27/2025 At any time in the past 12 m onths, were you homeless or living in a long-term (including now)? No 03/27/2025 Sexually Active Control Partners Comments Not Currently Comments No Sex and Gender Information Value Date Recorded Sex Assigned at Not on file Legal Sex Female 8:07 PM CDT Gender Identity Not on file Sexual Orientation Not on file Last Filed Vital Signs Vital Sign Reading Time Taken Comments Blood Pressure 122/68 08/08/2025 11:21 AM CDT Pulse 94 08/08/2025 11:21 AM CDT Temperature 36.3 C (97.3 F) 08/08/2025 11:21 AM CDT Respiratory Rate 12 12/29/2024 8:39 AM PRIMING MACHINE OPERATOR Oxygen Saturation 95% 08/08/2025 11:21 AM CDT Inhaled Oxygen Concentration - - Weight 85.3 kg (188 lb) 08/08/2025 11:21 AM CDT Height 162.6 cm (5' 4) 08/08/2025 11:21 AM CDT Body Mass Index 32.27 08/08/2025 11:21 AM CDT Plan of Treatment Upcoming Encounters Date Type Department Care Team (Late st Contact Info) Description 02/06/2026 11:40 AM CDT Office Visit [facility] - Primary Care - [place] [address] [place] [phone] Michael Olsen MD [address] [place] [address] Health Maintenance Due Date Last Done Comments DEXA Bone Density 1950 Hepatitis C Virus (HCV) Screening 1950 TdaP Immunization 1950 Cologuard 1995 Immunochemical Fecal Occult Blood 1995 Medicare Initial AWV [id number] 12/17/2016 Influenza Immunization (#1) 2025 SARS-COV-2 Immunization ( season) 2025 10/11/2021, 10/11/2021, 01/04/2021, Additional history exists Respiratory Syncytial Virus (RSV) Immunization (Adult) (1 - 1-dose 75+ series) 2025 Colonoscopy 11/12/2031 11/12/2021, 11/12/2021 Colorectal Cancer Screening 11/12/2031 Mammogram Discontinued 06/07/2022, 02/14, 02/01/2020, Additional history exists Zoster Immunization Completed 02/16/2025, Hepatitis B Immunization Aged Out No longer eligible based on patient's age to complete this topic Human Papillomavirus (HPV) Immunization (No Doses Required) Completed Meningococcal Immunization (ACWY) Aged Out No longer eligible based on patient's age to complete this topic Pneumococcal Immunization (50+ years) Discontinued Rotavirus Immunization Aged Out No lo nger eligible based on patient's age to complete this topic Procedures Procedure Name Priority Date/Time Associated Diagnosis Comments HM COLONOSCOPY 11/12/2021 12:00 AM PRIMING MACHINE OPERATOR from Last 3 Months or Most Recently Relevant to Health Maintenance Results * HM COLONOSCOPY (11/12/2021 12:00 AM PRIMING MACHINE OPERATOR) 11/12/2021 us Not On File Provider PROCEDURE/MINOR SURGICAL OR DERABLES Final Result SCAN from Last 3 Months or Most Recently Relevant to Health Maintenance Insurance MEDICARE [facility] [place] [id number] [facility] MEDICARE Care Teams Mold Stamper Relationship Specialty Start Date End Date Michael Olsen MD PCP - General Internal Medicine 12/29/24
--- OUTSIDE RECORDS SUMMARY | 2025-11-01 09:55 | XMS_ITS | Encounter Summary ---
Author Organization [facility] Address [address] [place] [address] Phone Care Team Providers Care Clinical Abstractor Name Role Phone Amber Gaffney MD Primary Care Provider [phone] Aakash Nunez MD PhD Unavailable [phone] German Velázquez MD Unavailable [phone] Rohan Simon MD Unavailable Sy Siddiqui MD Unavailable [phone] German Velázquez MD Unavailable [phone] Michael Olsen MD Primary Care Provider + [phone] Encounter Details Date Type Department Care Team (Late st Contact Info) Description 12/09/2021 Telephone [facility] Medicine Physicians [facility] [address] [place] [address] [address] [place] [address] Amanda Iqbal Social History Tobacco Use Types Packs/Day Years Used Date Smoking Tobacco: Never Smokeless Tobacco: Never Alcohol Use Standard Drinks/Week Comments Yes 0 (1 standard drink = 0.6 oz pur e alcohol) Comments No Sex and Gender Information Value Date Recorded Sex Assigned at Not on file 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 Gender Identity Not on file Sexual Orientation Not on file documented as of this encounter Plan of Treatment Not on file documented as of this encounter Visit Diagnoses Not on filedocumented in this encounter Care Teams Clinical Abstractor Relationship Specialty Start Date End Date Amber Gaffney MD PCP - General 04/05/14 03/26/25 Michael Olsen MD [address] [place] [address] PCP - General Internal Medicine 03/27/25 Aakash Nunez MD PhD [address] [place] [address] Radiation Oncologist Radiation Oncology 07/30/22 German Velázquez MD [address] [place] [address] Medical Oncologist/Powder Coater Hematology and Oncology 07/30/22 04/07/23 Rohan Simon MD [address] [place] [address] Referring Physician General Surgery 07/30/22 Sy Siddiqui MD [address] [place] [address] Referring Physician Family Practice 01/08/23 German Velázquez MD [address] [place] [address] Medical Oncologist/Powder Coater Hematology and Oncology 04/08/23 documented as of this encounter
--- OUTSIDE RECORDS SUMMARY | 2025-11-01 09:55 | XMS_ITS | Encounter Summary ---
Author Organization [facility] Address [address] [place] [address] Care Team Providers Care Green Hide Inspector Name Role Phone Amber Gaffney MD Primary Care Provider [phone] Aakash Nunez MD PhD Unavailable [phone] German Velázquez MD Unavailable [phone] Rohan Simon MD Unavailable Sy Siddiqui MD Unavailable [phone] German Velázquez MD Unavailable [phone] Michael Olsen MD Primary Care Provider [phone] Encounter Details Date Type Department Care Team (Late st Contact Info) Description 11/21/2022 Telephone [facility] Imaging [facility] [address] [place] [address] Yana Ricketts, SUKUMAR Social History Tobacco Use Types Packs/Day Years Used Date Smoking Tobacco: Never Smokeless Tobacco: Never Alcohol Use Standard Drinks/Week Comments Yes 0 (1 standard drink = 0.6 oz pur e alcohol) AUDIT-C Answer Date Recorded Q1: How often do you have a drink containing alc ohol? Monthly or less 08/11/2022 Q2: How many drinks containi ng alcohol do you have on a typical day when you are drinking? 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 Gender Identity Not on file Sexual Orientation Not on file documented as of this encounter Plan of Treatment Not on file documented as of this encounter Visit Diagnoses Not on filedocumented in this encounter Care Teams Green Hide Inspector Relationship Specialty Start Date End Date Amber Gaffney MD PCP - General 04/05/14 03/26/25 Michael Olsen MD [address] [place] [address] PCP - General Internal Medicine 03/27/25 Aakash Nunez MD PhD [address] [place] [address] Radiation Oncologist Radiation Oncology 07/30/22 German Velázquez MD [address] [place] [address] Medical Oncologist/Plant Sciences Professor Hematology and Oncology 07/30/22 04/07/23 Rohan Simon MD [address] [place] [address] Referring Physician General Surgery 07/30/22 Sy Siddiqui MD [address] [place] [address] Referring Physician Family Practice 01/08/23 German Velázquez MD [address] [place] [address] Medical Oncologist/Plant Sciences Professor Hematology and Oncology 04/08/23 documented as of this encounter
--- OUTSIDE RECORDS SUMMARY | 2025-11-01 09:55 | XMS_ITS | Encounter Summary ---
Author Organization [facility] Address [address] [place] [address] Phone Care Team Providers Care Travel Consultant Name Role Phone Amber Gaffney MD Primary Care Provider [phone] Michael Olsen MD Primary Care Provider [phone] Encounter Details Date Type Department Care Team (Late st Contact Info) Description 07/04/2022 Transcribe Orders [facility] Central Scheduling [address] [place] [address] Amber Gaffney MD [place] [address] Mass of left breast, unspecified [...] on file Sexual Orientation Not on file COVID-19 Exposure Response Date Recorded In the last 10 days, have yo u been in contact with someone who was confirmed or suspected to have Coronavirus/COVID-19? No / Unsure 06/30/2022 9:01 PM CDT documented as of this encounter Plan of Treatment Upcoming Encounters Date Type Department Care Team (Late st Contact Info) Description 02/06/2026 11:40 AM CDT Office Visit [facility] - Primary Care - [place] [address] [place] [address] Michael Olsen MD [address] [place] [address] documented as of this encounter Visit Diagnoses Diagnosis Mass of left breast, unspecified quadrant- Primary documented in this encounter Care Teams Travel Consultant Relationship Specialty Start Date End Date Amber Gaffney MD [address] [facility] [place] [address] PCP - General Internal Medicine 01/09/20 12/28/24 Michael Olsen MD [address] [facility] EXEC[facility] [place] [address] PCP - General Internal Medicine 12/29/24 documented as of this encounter
== END 2025-11-01 08:58 | disposition home or self-care (01) ==
LOC: ANHBWCIMG 09:05
PROVIDERS: PCP Nurse Practitioner Adult Health; Visit Provider Nurse Practitioner Adult Health
DX: M25.511 Pain in right shoulder (principal)
CPT/HCPCS: 73030